=== PATIENT | female | born 1955 | race Caucasian/White ===

== ENCOUNTER 2017-04-03 18:00 | Emergency (ER) | payer MEDICARE, MEDICAID ==
[~2017-04-03] VITALS: Ht 162.6 cm; Wt 79.5 kg
[~2017-04-03 18:00] MED LIST: CEPH250T PO; CLOP75TA35 PO; HYDR-565 PO; INSU100C10 SQ; LANTUS SUBCUT; LISI10TA4 PO; ROPI4TAB3 PO
[2017-04-03] MEDS ORDERED: acetaminophen 325mg tablet PO STA (18:16)
[2017-04-03] MEDS ORDERED: normal saline 1000ML IV soln IV ONE (18:20)
[2017-04-03 19:15] LABS: ALBUMIN 3.1 G/DL (3.4-5.0); ALBUMIN/GLOBULIN RATIO 0.7 (1.1-1.5); ANION GAP 11 (8-16); ASPARTATE AMINO TRANSFERASE 21 U/L (10-37); BILIRUBIN,TOTAL 0.4 MG/DL (0.1-1.0); BLOOD UREA NITROGEN 12 MG/DL (7-18); BUN/CREATININE RATIO 12.2 (6.6-38.0); CALCIUM 8.3 MG/DL (8.5-10.1); CHLORIDE 100 MMOL/L (99-107); CREATININE 0.98 MG/DL (0.40-0.90); GLUCOSE 233 MG/DL (70-104); POTASSIUM 3.2 MMOL/L (3.5-5.1); SODIUM 136 MMOL/L (135-145); TOTAL CARBON DIOXIDE 25.3 MMOL/L (24-32); TOTAL PROTEIN 7.6 G/DL (6.4-8.2); eGFR 58 ML/MIN
[2017-04-03 19:16] LABS: ALANINE AMINOTRANSFERASE 20 U/L (12-78); ALKALINE PHOSPHATASE 95 IU/L (46-116)
[2017-04-03] MEDS ORDERED: potassium Cl 20 mEq SR tablet PO STA (19:25)
[2017-04-03 19:38] LABS: BASOPHILS % (AUTO) 0 % (0-1); EOSINOPHILS % (AUTO) 0 % (0-6); HEMATOCRIT 33.7 % (35.0-45.0); HEMOGLOBIN 10.7 g/dl (12.0-16.0); LYMPHOCYTES # (AUTO) 0.5 X10'3 (1.1-4.8); LYMPHOCYTES % (AUTO) 3.4 % (21-51); MEAN CORPUSCULAR HEMOGLOBIN 24.1 PG (27.0-31.0); MEAN CORPUSCULAR HGB CONC 31.9 % (33.0-36.5); MEAN CORPUSCULAR VOLUME 75.7 FL (78-98); MEAN PLATELET VOLUME 8.9 FL (7.4-10.4); MONOCYTES # (AUTO) 0.4 X10'3 (0-0.9); MONOCYTES % (AUTO) 2.5 % (2-12); NEUTROPHILS # (AUTO) 13.4 X10'3 (1.8-7.7); NEUTROPHILS % (AUTO) 94.1 % (42-75); PLATELET COUNT 222 X10'3 (140-440); RED BLOOD COUNT 4.45 X10'6 (4.20-5.60); RED CELL DISTRIBUTION WIDTH 18.4 % (11.5-14.5); WHITE BLOOD COUNT 14.2 X10'3 (4.5-11.0)
[2017-04-03 20:03] LABS: TOTAL CELLS COUNTED 100
[2017-04-03 20:06] LABS: ANISOCYTOSIS 2+; PLATELET ESTIMATE NORMAL
[2017-04-03 20:07] LABS: LARGE PLATELETS FEW
[2017-04-03] MEDS ORDERED: levoFLOXACIN-Levaquin 750MG/D5 150 ML IV STA (20:25)
[2017-04-03] MEDS ORDERED: ketorolac tromethamine 15mg/ml inj. IV ONE (20:55)
[2017-04-03 21:04] LABS: CLARITY,URINE CLEAR (Clear); COLOR,URINE YELLOW (Yellow); GLUCOSE, URINE 500 mg/dl (Neg); KETONES,URINE NEGATIVE (Neg); LEUKOCYTE ESTERASE ,URINE NEGATIVE (Neg); NITRITES, URINE POSITIVE (Neg); OCCULT BLOOD,URINE MODERATE (Neg); PROTEIN,URINE 30 mg/dl (Neg)
[2017-04-03 21:21] LABS: UA COLLECTION TYPE CLN CATCH MIDSTREAM
[2017-04-03 21:24] LABS: RBC,URINE 0-2 /HPF (0-2)
[2017-04-03 21:26] LABS: BACTERIA,URINE 1+ /HPF (Neg); CAL OXALATE CRYSTALS 1+ /HPF (NEGATIVE); HYALINE CASTS 0-3 /LPF (NEGATIVE); SQUAMOUS EPITHELIAL CELL,UR FEW /LPF (FEW)
[2017-04-03] MEDS ORDERED: TAM75C PO (22:45)
[2017-04-03] MEDS ORDERED: NITR100C6 PO (22:45)
[2017-04-03] MEDS ORDERED: nitrofuran/nitrofuran macrocrysal 100 MG capsule PO ONE (22:50)
[2017-04-03] MEDS ORDERED: oseltamivir phos 75mg capsule PO ONE (22:50)
[2017-04-03 23:32] VITALS: BP 145/65
== END 2017-04-03 23:42 | disposition home or self-care (01) ==
LOC: ER 18:00
DX: B34.9 Viral infection, unspecified (principal); N39.0 Urinary tract infection, site not specified; E11.42 Type 2 diabetes mellitus with diabetic polyneuropathy; G89.29 Other chronic pain; I25.10 Atherosclerotic heart disease of native coronary artery without angina pectoris; Z90.710 Acquired absence of both cervix and uterus; Z88.5 Allergy status to narcotic agent
CPT/HCPCS: 36415; 71045; 80053; 81001; 82948; 83605; 85025; 87040; 87088; 87502; 87503; 93005; 96374; 96375; 99285; J1885; J1956; J7030; 96365

== ENCOUNTER 2017-04-05 10:13 | Inpatient (IN) | payer MEDICARE, MEDICAID ==
[~2017-04-05] VITALS: Ht 157.5 cm; Wt 88.5 kg
[~2017-04-05 10:13] MED LIST changes: +NITR100C6 PO; +TAM75C PO
[2017-04-05] MEDS ORDERED: acetaminophen 325mg tablet PO STA (11:34)
[2017-04-05] MEDS ORDERED: vancomycin/NS 1 GM ADD-VANTAGE 250 ML IV ONE (11:35)
[2017-04-05] MEDS ORDERED: normal saline 1000ML IV soln IV ONE (11:35)
[2017-04-05] MEDS ORDERED: CefTRIAXone 2gm/D5W 50ml ADVTG 50 ML IV ONE (11:35)
[2017-04-05] MEDS ORDERED: CefTRIAXone inj 2,000 MG in normal saline 100ml IV soln 100 ML IV ONE (12:00)
[2017-04-05 12:27] LABS: BASOPHILS % (AUTO) 0 % (0-1); EOSINOPHILS # (AUTO) 0.1 X10'3 (0-0.9); EOSINOPHILS % (AUTO) 0.6 % (0-6); HEMOGLOBIN 9.2 g/dl (12.0-16.0); LYMPHOCYTES # (AUTO) 1.3 X10'3 (1.1-4.8); LYMPHOCYTES % (AUTO) 14.1 % (21-51); MEAN CORPUSCULAR HEMOGLOBIN 23.9 PG (27.0-31.0); MEAN CORPUSCULAR HGB CONC 31.6 % (33.0-36.5); MEAN CORPUSCULAR VOLUME 75.4 FL (78-98); MEAN PLATELET VOLUME 8.5 FL (7.4-10.4); MONOCYTES # (AUTO) 0.4 X10'3 (0-0.9); MONOCYTES % (AUTO) 4.6 % (2-12); NEUTROPHILS # (AUTO) 7.6 X10'3 (1.8-7.7); NEUTROPHILS % (AUTO) 80.7 % (42-75); PLATELET COUNT 211 X10'3 (140-440); RED BLOOD COUNT 3.84 X10'6 (4.20-5.60); RED CELL DISTRIBUTION WIDTH 19.1 % (11.5-14.5); WHITE BLOOD COUNT 9.4 X10'3 (4.5-11.0)
[2017-04-05 12:38] LABS: PARTIAL THROMBOPLASTIN TIME 34 SECONDS (22-32); PROTHROMBIN TIME 10.5 SECONDS (9.0-12.0)
[2017-04-05 12:53] LABS: ALANINE AMINOTRANSFERASE 29 U/L (12-78); ALBUMIN 2.6 G/DL (3.4-5.0); ALBUMIN/GLOBULIN RATIO 0.6 (1.1-1.5); ALKALINE PHOSPHATASE 91 IU/L (46-116); ANION GAP 8 (8-16); ASPARTATE AMINO TRANSFERASE 42 U/L (10-37); BILIRUBIN,TOTAL 0.4 MG/DL (0.1-1.0); BLOOD UREA NITROGEN 9 MG/DL (7-18); BUN/CREATININE RATIO 11.7 (6.6-38.0); CALCIUM 8.3 MG/DL (8.5-10.1); CHLORIDE 104 MMOL/L (99-107); CREATININE 0.77 MG/DL (0.40-0.90); GLUCOSE 99 MG/DL (70-104); MAGNESIUM 1.6 MG/DL (1.5-2.4); POTASSIUM 3.5 MMOL/L (3.5-5.1); SODIUM 138 MMOL/L (135-145); TOTAL CARBON DIOXIDE 26.5 MMOL/L (24-32); eGFR 76 ML/MIN
[2017-04-05 13:53] LABS: CLARITY,URINE Clear (Clear); COLOR,URINE Yellow (Yellow); GLUCOSE, URINE Negative (Neg); KETONES,URINE Negative (Neg); LEUKOCYTE ESTERASE ,URINE Small (Neg); NITRITES, URINE Negative (Neg); OCCULT BLOOD,URINE Small (Neg); PH,URINE 5.5 (4.8-8.0); PROTEIN,URINE 30 mg/dl (Neg)
[2017-04-05 13:55] LABS: UA COLLECTION TYPE CLN CATCH MIDSTREAM
[2017-04-05 14:05] LABS: BACTERIA,URINE NONE SEEN /HPF (Neg); MUCUS STRANDS NONE SEEN /LPF (Neg); RBC,URINE 0-2 /HPF (0-2); SQUAMOUS EPITHELIAL CELL,UR MODERATE /LPF (FEW)
[2017-04-05] MEDS ORDERED: potassium Cl 40MEQ/NS 500ml 500 ML IV PRN ×2 (14:05)
[2017-04-05] MEDS ORDERED: HYDROcodone/acetaminophen 5mg/325mg tablet PO PRN (14:05)
[2017-04-05] MEDS ORDERED: magnesium hydroxide 30ml (MOM) UD suspension PO PRN (14:05)
[2017-04-05] MEDS ORDERED: acetaminophen 325mg tablet PO PRN (14:05)
[2017-04-05] MEDS ORDERED: bisacodyl 10mg suppository rectal RC PRN (14:05)
[2017-04-05] MEDS ORDERED: ondansetron/PF 4mg/2ml inj IV PRN (14:05)
[2017-04-05] MEDS ORDERED: mag hydrox/Alum hydrox/simeth 30ml oral suspension PO PRN (14:05)
[2017-04-05] MEDS ORDERED: magnesium 4gm in 100ml NS 100 ML IV PRN (14:05)
[2017-04-05] MEDS ORDERED: potassium Cl 20 mEq SR tablet PO PRN (14:05)
[2017-04-05] MEDS ORDERED: magnesium Cl slow-release 64mg tablet PO PRN (14:05)
[2017-04-05] MEDS: levoFLOXACIN-Levaquin 500mg/D5 100 ML IV SCH (14:05)
[2017-04-05] MEDS ORDERED: magnesium 2GM in 50ml NS 50 ML IV PRN (14:05)
[2017-04-05] MEDS ORDERED: MESSAGE TO PHARMACY PO ONE ×2 (14:25)
[2017-04-05] MEDS ORDERED: glucagon, human recombinant 1mg kit SUBCUT PRN ×2 (14:25)
[2017-04-05] MEDS ORDERED: insulin Lispro (HumaLOG) vial - multi-dose SQ SCH ×2 (14:25)
[2017-04-05] MEDS ORDERED: dextrose 50%-water 50ml dispensing syringe IV PRN ×4 (14:25)
[2017-04-05] MEDS ORDERED: dextrose ORAL solution 15 GM/59 ML bottle PO PRN ×4 (14:25)
[2017-04-05] MEDS ORDERED: ROPINIRole 1mg tablet PO ONE (14:50)
[2017-04-05] MEDS: HYDROcodone/acetaminophen 10/325mg tab PO PRN ×2 (14:54→22:04)
[2017-04-05] MEDS: clindamycin 600mg/D5W 50ml 50 ML IV SCH ×2 (17:07→20:35)
[2017-04-05] MEDS ORDERED: iohexol 350MG/ML 100ml bottle IV ONE ×2 (17:26→18:05)
[2017-04-05] MEDS ORDERED: iohexol 350 MG/ML 50ML vial IV ONE (17:28)
[2017-04-05 19:00] VITALS: BP 130/63
[2017-04-05] MEDS ORDERED: non-formulary drug (Ropinirole Hcl (Requip) 1 TAB) PO SCH (20:00)
[2017-04-05] MEDS: docusate sod 100mg capsule PO SCH (20:00)
[2017-04-05] MEDS: potassium Cl 20mEq in NS 1,000 ML IV SCH (20:30)
[2017-04-05] MEDS: ROPINIRole 1mg tablet PO SCH (20:31)
[2017-04-05] MEDS: heparin, porcine 5000 units/ml vial SQ SCH (20:31)
[2017-04-05] MEDS: Insulin Detemir pen SQ SCH (21:00)
[2017-04-05] MEDS ORDERED: Insulin Detemir pen SQ SCH (21:00)
[2017-04-06] VITALS (7 sets, daily range): BP systolic 110–148; BP diastolic 59–89
[2017-04-06] MEDS ORDERED: HYDROmorphone inj. 0.5 MG/0.5 ML DISP.SYRIN IV PRN (00:25)
[2017-04-06] MEDS: HYDROmorphone 1 mg/ml syringe IV PRN ×2 (00:47→23:13)
[2017-04-06] MEDS: ROPINIRole 1mg tablet PO SCH ×4 (02:23→19:51)
[2017-04-06] MEDS: clindamycin 600mg/D5W 50ml 50 ML IV SCH ×4 (02:23→19:50)
[2017-04-06] MEDS: potassium Cl 20mEq in NS 1,000 ML IV SCH ×2 (04:21→12:14)
[2017-04-06 05:34] LABS: BASOPHILS % (AUTO) 0.2 % (0-1); EOSINOPHILS # (AUTO) 0.1 X10'3 (0-0.9); EOSINOPHILS % (AUTO) 1.9 % (0-6); HEMATOCRIT 26.4 % (35.0-45.0); HEMOGLOBIN 8.2 g/dl (12.0-16.0); LYMPHOCYTES # (AUTO) 1.4 X10'3 (1.1-4.8); LYMPHOCYTES % (AUTO) 19.9 % (21-51); MEAN CORPUSCULAR HEMOGLOBIN 23.5 PG (27.0-31.0); MEAN CORPUSCULAR VOLUME 75.6 FL (78-98); MEAN PLATELET VOLUME 9.8 FL (7.4-10.4); MONOCYTES # (AUTO) 0.5 X10'3 (0-0.9); MONOCYTES % (AUTO) 7.6 % (2-12); NEUTROPHILS % (AUTO) 70.4 % (42-75); PLATELET COUNT 141 X10'3 (140-440); RED BLOOD COUNT 3.49 X10'6 (4.20-5.60); RED CELL DISTRIBUTION WIDTH 19.2 % (11.5-14.5); WHITE BLOOD COUNT 7.1 X10'3 (4.5-11.0)
[2017-04-06 05:52] LABS: ALANINE AMINOTRANSFERASE 32 U/L (12-78); ALBUMIN 2.2 G/DL (3.4-5.0); ALBUMIN/GLOBULIN RATIO 0.6 (1.1-1.5); ALKALINE PHOSPHATASE 94 IU/L (46-116); ANION GAP 7 (8-16); ASPARTATE AMINO TRANSFERASE 43 U/L (10-37); BILIRUBIN,TOTAL 0.2 MG/DL (0.1-1.0); BLOOD UREA NITROGEN 8 MG/DL (7-18); CALCIUM 7.9 MG/DL (8.5-10.1); CHLORIDE 106 MMOL/L (99-107); CREATININE 0.57 MG/DL (0.40-0.90); GLUCOSE 82 MG/DL (70-104); MAGNESIUM 1.5 MG/DL (1.5-2.4); POTASSIUM 3.4 MMOL/L (3.5-5.1); SODIUM 136 MMOL/L (135-145); TOTAL CARBON DIOXIDE 22.7 MMOL/L (24-32); TOTAL PROTEIN 6.1 G/DL (6.4-8.2); eGFR > 90 ML/MIN
[2017-04-06] MEDS: lisinopril 10 MG tablet PO SCH (07:28)
[2017-04-06] MEDS: docusate sod 100mg capsule PO SCH ×2 (07:28→19:51)
[2017-04-06] MEDS: clopidogrel 75mg tablet PO SCH (07:28)
[2017-04-06] MEDS: heparin, porcine 5000 units/ml vial SQ SCH ×2 (07:29→19:51)
[2017-04-06] MEDS: potassium Cl 20 mEq SR tablet PO PRN ×3 (07:38→19:51)
[2017-04-06] MEDS: K and/or MAG REPLACEMENT MC SCH (08:00)
[2017-04-06] MEDS ORDERED: insulin glargine (Lantus) pen - multi-dose SQ SCH (08:00)
[2017-04-06] MEDS ORDERED: Insulin Detemir pen SQ SCH (08:00)
[2017-04-06] MEDS: levoFLOXACIN-Levaquin 500mg/D5 100 ML IV SCH (09:30)
[2017-04-06] MEDS: HYDROcodone/acetaminophen 10/325mg tab PO PRN (19:51)
[2017-04-06] MEDS: Insulin Detemir pen SQ SCH (21:00)
[2017-04-06] MEDS: diphenhydrAMINE 25mg capsule PO PRN (22:19)
[2017-04-07] VITALS: BP 110/71
[2017-04-07] MEDS: ROPINIRole 1mg tablet PO SCH ×4 (01:29→21:39)
[2017-04-07] MEDS: clindamycin 600mg/D5W 50ml 50 ML IV SCH ×4 (01:29→21:41)
[2017-04-07] MEDS ORDERED: potassium Cl 20mEq in NS 1,000 ML IV ONE (01:44)
[2017-04-07] MEDS: potassium Cl 20mEq in NS 1,000 ML IV SCH ×2 (01:48→20:13)
[2017-04-07 04:23] LABS: BASOPHILS % (AUTO) 0.3 % (0-1); EOSINOPHILS # (AUTO) 0.1 X10'3 (0-0.9); EOSINOPHILS % (AUTO) 1.7 % (0-6); HEMATOCRIT 24.4 % (35.0-45.0); HEMOGLOBIN 7.8 g/dl (12.0-16.0); LYMPHOCYTES # (AUTO) 1.6 X10'3 (1.1-4.8); LYMPHOCYTES % (AUTO) 25.7 % (21-51); MEAN CORPUSCULAR HEMOGLOBIN 23.9 PG (27.0-31.0); MEAN CORPUSCULAR HGB CONC 32.1 % (33.0-36.5); MEAN CORPUSCULAR VOLUME 74.5 FL (78-98); MEAN PLATELET VOLUME 9.5 FL (7.4-10.4); MONOCYTES # (AUTO) 0.5 X10'3 (0-0.9); MONOCYTES % (AUTO) 8.4 % (2-12); NEUTROPHILS # (AUTO) 4.1 X10'3 (1.8-7.7); NEUTROPHILS % (AUTO) 63.9 % (42-75); PLATELET COUNT 166 X10'3 (140-440); RED BLOOD COUNT 3.27 X10'6 (4.20-5.60); RED CELL DISTRIBUTION WIDTH 19.6 % (11.5-14.5); WHITE BLOOD COUNT 6.4 X10'3 (4.5-11.0)
[2017-04-07 04:44] LABS: ALANINE AMINOTRANSFERASE 28 U/L (12-78); ALBUMIN 2.1 G/DL (3.4-5.0); ALBUMIN/GLOBULIN RATIO 0.5 (1.1-1.5); ALKALINE PHOSPHATASE 84 IU/L (46-116); ANION GAP 7 (8-16); ASPARTATE AMINO TRANSFERASE 22 U/L (10-37); BILIRUBIN,TOTAL 0.2 MG/DL (0.1-1.0); BLOOD UREA NITROGEN 5 MG/DL (7-18); BUN/CREATININE RATIO 7.8 (6.6-38.0); CALCIUM 7.7 MG/DL (8.5-10.1); CHLORIDE 106 MMOL/L (99-107); CREATININE 0.64 MG/DL (0.40-0.90); GLUCOSE 82 MG/DL (70-104); MAGNESIUM 1.7 MG/DL (1.5-2.4); POTASSIUM 3.8 MMOL/L (3.5-5.1); SODIUM 139 MMOL/L (135-145); TOTAL CARBON DIOXIDE 25.7 MMOL/L (24-32); TOTAL PROTEIN 6.2 G/DL (6.4-8.2); eGFR > 90 ML/MIN
[2017-04-07] MEDS: HYDROcodone/acetaminophen 10/325mg tab PO PRN ×2 (04:47→12:14)
[2017-04-07 06:50] VITALS: BP_SYST 106; BP_SYST 115; BP_SYST 120; BP_DIAS 50; BP_DIAS 58; BP_DIAS 65
[2017-04-07] MEDS: clopidogrel 75mg tablet PO SCH (07:08)
[2017-04-07] MEDS: lisinopril 10 MG tablet PO SCH (07:09)
[2017-04-07] MEDS: docusate sod 100mg capsule PO SCH ×2 (07:10→20:00)
[2017-04-07] MEDS: heparin, porcine 5000 units/ml vial SQ SCH ×2 (07:10→21:40)
[2017-04-07] MEDS: K and/or MAG REPLACEMENT MC SCH (07:14)
[2017-04-07] MEDS: levoFLOXACIN-Levaquin 500mg/D5 100 ML IV SCH (08:43)
[2017-04-07 11:20] VITALS: BP 114/73
[2017-04-07] MEDS: HYDROmorphone 1 mg/ml syringe IV PRN (18:46)
[2017-04-07 19:30] VITALS: BP_SYST 124; BP_SYST 134; BP_SYST 139; BP_DIAS 53; BP_DIAS 62
[2017-04-07] MEDS: diphenhydrAMINE 25mg capsule PO PRN (21:42)
[2017-04-07] MEDS: Insulin Detemir pen SQ SCH (22:30)
[2017-04-08] VITALS: BP 106/51
[2017-04-08] MEDS: HYDROmorphone 1 mg/ml syringe IV PRN ×3 (01:20→22:36)
[2017-04-08] MEDS: clindamycin 600mg/D5W 50ml 50 ML IV SCH ×4 (02:40→20:22)
[2017-04-08] MEDS: ROPINIRole 1mg tablet PO SCH ×4 (02:41→20:22)
[2017-04-08 05:29] LABS: BASOPHILS % (AUTO) 0.5 % (0-1); EOSINOPHILS # (AUTO) 0.2 X10'3 (0-0.9); EOSINOPHILS % (AUTO) 2.9 % (0-6); HEMATOCRIT 24.2 % (35.0-45.0); HEMOGLOBIN 7.7 g/dl (12.0-16.0); LYMPHOCYTES # (AUTO) 1.8 X10'3 (1.1-4.8); LYMPHOCYTES % (AUTO) 27.8 % (21-51); MEAN CORPUSCULAR HEMOGLOBIN 23.7 PG (27.0-31.0); MEAN CORPUSCULAR HGB CONC 31.9 % (33.0-36.5); MEAN CORPUSCULAR VOLUME 74.5 FL (78-98); MEAN PLATELET VOLUME 9.5 FL (7.4-10.4); MONOCYTES # (AUTO) 0.6 X10'3 (0-0.9); MONOCYTES % (AUTO) 8.4 % (2-12); NEUTROPHILS % (AUTO) 60.4 % (42-75); PLATELET COUNT 208 X10'3 (140-440); RED BLOOD COUNT 3.25 X10'6 (4.20-5.60); RED CELL DISTRIBUTION WIDTH 19.2 % (11.5-14.5); WHITE BLOOD COUNT 6.6 X10'3 (4.5-11.0)
[2017-04-08 05:59] LABS: ALANINE AMINOTRANSFERASE 26 U/L (12-78); ALBUMIN 2.1 G/DL (3.4-5.0); ALBUMIN/GLOBULIN RATIO 0.5 (1.1-1.5); ALKALINE PHOSPHATASE 80 IU/L (46-116); ANION GAP 8 (8-16); ASPARTATE AMINO TRANSFERASE 19 U/L (10-37); BILIRUBIN,TOTAL 0.3 MG/DL (0.1-1.0); BLOOD UREA NITROGEN 3 MG/DL (7-18); BUN/CREATININE RATIO 4.9 (6.6-38.0); CALCIUM 7.8 MG/DL (8.5-10.1); CHLORIDE 105 MMOL/L (99-107); CREATININE 0.61 MG/DL (0.40-0.90); GLUCOSE 98 MG/DL (70-104); MAGNESIUM 1.7 MG/DL (1.5-2.4); POTASSIUM 3.6 MMOL/L (3.5-5.1); SODIUM 139 MMOL/L (135-145); TOTAL CARBON DIOXIDE 26.5 MMOL/L (24-32); TOTAL PROTEIN 6.1 G/DL (6.4-8.2); eGFR > 90 ML/MIN
[2017-04-08 07:42] VITALS: BP 127/63
[2017-04-08 08:00] VITALS: BP_SYST 117; BP_DIAS 62; BP_DIAS 63; BP_DIAS 70
[2017-04-08] MEDS: K and/or MAG REPLACEMENT MC SCH (08:00)
[2017-04-08] MEDS: docusate sod 100mg capsule PO SCH ×2 (10:47→20:00)
[2017-04-08] MEDS: lisinopril 10 MG tablet PO SCH (10:47)
[2017-04-08] MEDS: heparin, porcine 5000 units/ml vial SQ SCH (10:49)
[2017-04-08 11:42] VITALS: BP 117/70
[2017-04-08] MEDS: levoFLOXACIN-Levaquin 500mg/D5 100 ML IV SCH (11:49)
[2017-04-08] MEDS ORDERED: heparin 10,000 units/1 ML INJ IV ONE (12:50)
[2017-04-08] MEDS: potassium Cl 20mEq in NS 1,000 ML IV SCH (13:33)
[2017-04-08 13:55] LABS: PARTIAL THROMBOPLASTIN TIME 30 SECONDS (22-32); PROTHROMBIN TIME 10.2 SECONDS (9.0-12.0)
[2017-04-08 19:00] VITALS: BP 156/86
[2017-04-08 20:00] VITALS: BP_SYST 114; BP_SYST 129; BP_SYST 133; BP_DIAS 65; BP_DIAS 67; BP_DIAS 82
[2017-04-08] MEDS: Insulin Detemir pen SQ SCH (21:00)
[2017-04-09] VITALS (21 sets, daily range): BP systolic 96–162; BP diastolic 48–117
[2017-04-09 01:36] LABS: ALANINE AMINOTRANSFERASE 25 U/L (12-78); ALBUMIN 2.1 G/DL (3.4-5.0); ALBUMIN/GLOBULIN RATIO 0.5 (1.1-1.5); ALKALINE PHOSPHATASE 77 IU/L (46-116); ANION GAP 5 (8-16); ASPARTATE AMINO TRANSFERASE 13 U/L (10-37); BILIRUBIN,TOTAL 0.2 MG/DL (0.1-1.0); BLOOD UREA NITROGEN 3 MG/DL (7-18); BUN/CREATININE RATIO 4.4 (6.6-38.0); CALCIUM 7.8 MG/DL (8.5-10.1); CHLORIDE 104 MMOL/L (99-107); CREATININE 0.68 MG/DL (0.40-0.90); GLUCOSE 238 MG/DL (70-104); MAGNESIUM 1.8 MG/DL (1.5-2.4); POTASSIUM 3.7 MMOL/L (3.5-5.1); SODIUM 137 MMOL/L (135-145); TOTAL CARBON DIOXIDE 28.5 MMOL/L (24-32); TOTAL PROTEIN 6.3 G/DL (6.4-8.2); eGFR 88 ML/MIN
[2017-04-09 01:58] LABS: BASOPHILS % (AUTO) 0.5 % (0-1); EOSINOPHILS # (AUTO) 0.2 X10'3 (0-0.9); EOSINOPHILS % (AUTO) 2.6 % (0-6); HEMATOCRIT 25.4 % (35.0-45.0); LYMPHOCYTES # (AUTO) 1.7 X10'3 (1.1-4.8); LYMPHOCYTES % (AUTO) 23.5 % (21-51); MEAN CORPUSCULAR HEMOGLOBIN 23.6 PG (27.0-31.0); MEAN CORPUSCULAR HGB CONC 31.5 % (33.0-36.5); MEAN CORPUSCULAR VOLUME 74.8 FL (78-98); MEAN PLATELET VOLUME 9.7 FL (7.4-10.4); MONOCYTES # (AUTO) 0.4 X10'3 (0-0.9); MONOCYTES % (AUTO) 5.8 % (2-12); NEUTROPHILS % (AUTO) 67.6 % (42-75); PLATELET COUNT 285 X10'3 (140-440); RED CELL DISTRIBUTION WIDTH 19.6 % (11.5-14.5); WHITE BLOOD COUNT 7.3 X10'3 (4.5-11.0)
[2017-04-09] MEDS: ROPINIRole 1mg tablet PO SCH ×4 (02:00→20:45)
[2017-04-09] MEDS: clindamycin 600mg/D5W 50ml 50 ML IV SCH ×4 (02:23→20:23)
[2017-04-09] MEDS: potassium Cl 20mEq in NS 1,000 ML IV SCH ×2 (03:51→11:28)
[2017-04-09] MEDS: HYDROcodone/acetaminophen 10/325mg tab PO PRN (04:04)
[2017-04-09] MEDS: lisinopril 10 MG tablet PO SCH (07:45)
[2017-04-09] MEDS: LACTOBACILLUS RHAMNOSUS GG 15 billion unit sprinkle caps PO SCH (07:46)
[2017-04-09] MEDS: docusate sod 100mg capsule PO SCH ×2 (07:47→20:23)
[2017-04-09] MEDS: heparin 10,000 units/1 ML INJ IV PRN (07:54)
[2017-04-09] MEDS: K and/or MAG REPLACEMENT MC SCH (08:00)
[2017-04-09] MEDS: levoFLOXACIN 500mg tablet PO SCH (11:22)
[2017-04-09] MEDS ORDERED: HYDR-3972 (11:45)
[2017-04-09] MEDS ORDERED: iohexol 300 MG/1 ML 50ml polymer ONE (14:02)
[2017-04-09] MEDS ORDERED: iohexol 300mg/ml 100ml inj. ONE (14:02)
[2017-04-09] MEDS ORDERED: LIDOcaine 1%/PF (10mg/ml) 5ml vial ONE (14:03)
[2017-04-09] MEDS ORDERED: normal saline 1000ml 1,000 ML IV SCH (14:17)
[2017-04-09] MEDS ORDERED: fentaNYL/PF 50MCG/1 ML 2ML syringe IV PRN (14:20)
[2017-04-09] MEDS ORDERED: midazolam 2 mg/2 ml injection IV PRN (14:20)
[2017-04-09] MEDS ORDERED: LIDOcaine 1%/PF (10mg/ml) 5ml vial SQ ONE (14:20)
[2017-04-09] MEDS ORDERED: midazolam 2 mg/2 ml injection ONE (14:47)
[2017-04-09] MEDS ORDERED: heparin 1,000 UNITS/NS 500ml 500 ML ONE ×2 (14:47→15:30)
[2017-04-09] MEDS ORDERED: heparin 1,000unit/ml 10ml vial 0 ML ONE (14:47)
[2017-04-09] MEDS ORDERED: fentaNYL/PF 50MCG/1 ML 2ML syringe ONE (14:47)
[2017-04-09] MEDS ORDERED: tPA-cathflo 2mg/2ml IV flush 4 MG in normal saline 100ml IV soln 100 ML ICATH SCH (15:19)
[2017-04-09] MEDS: heparin 1,000 UNITS/NS 500ml 500 ML IV SCH (15:20)
[2017-04-09] MEDS: HYDROmorphone 1 mg/ml syringe IV PRN (17:35)
[2017-04-09] MEDS ORDERED: HYDROmorphone/NS 1 mg/ml CADD 50 ML IV SCH (18:50)
[2017-04-09] MEDS ORDERED: CADD PCA waste documentation MC SCH (18:55)
[2017-04-09] MEDS: HYDROmorphone/NS 1 mg/ml CADD 50 ML IV SCH ×3 (19:36→23:00)
[2017-04-09] MEDS: Insulin Detemir pen SQ SCH (21:00)
[2017-04-09 22:21] LABS: HEMATOCRIT 26.4 % (35.0-45.0); HEMOGLOBIN 8.4 g/dl (12.0-16.0); MEAN CORPUSCULAR HEMOGLOBIN 23.9 PG (27.0-31.0); MEAN CORPUSCULAR HGB CONC 31.7 % (33.0-36.5); MEAN CORPUSCULAR VOLUME 75.2 FL (78-98); MEAN PLATELET VOLUME 8.2 FL (7.4-10.4); PLATELET COUNT 294 X10'3 (140-440); RED BLOOD COUNT 3.52 X10'6 (4.20-5.60); WHITE BLOOD COUNT 8.5 X10'3 (4.5-11.0)
[2017-04-10] VITALS (44 sets, daily range): BP systolic 88–150; BP diastolic 31–87
[2017-04-10] MEDS: HYDROmorphone/NS 1 mg/ml CADD 50 ML IV SCH ×12 (01:00→23:00)
[2017-04-10] MEDS: diphenhydrAMINE 25mg capsule PO PRN (01:35)
[2017-04-10] MEDS: clindamycin 600mg/D5W 50ml 50 ML IV SCH ×4 (02:11→19:43)
[2017-04-10] MEDS: ROPINIRole 1mg tablet PO SCH ×4 (02:13→19:43)
[2017-04-10] MEDS: heparin 1,000 UNITS/NS 500ml 500 ML IV SCH (02:44)
[2017-04-10 05:26] LABS: BASOPHILS % (AUTO) 0.4 % (0-1); EOSINOPHILS # (AUTO) 0.2 X10'3 (0-0.9); EOSINOPHILS % (AUTO) 2.2 % (0-6); HEMATOCRIT 25.2 % (35.0-45.0); HEMOGLOBIN 7.9 g/dl (12.0-16.0); LYMPHOCYTES # (AUTO) 2.3 X10'3 (1.1-4.8); LYMPHOCYTES % (AUTO) 26.9 % (21-51); MEAN CORPUSCULAR HEMOGLOBIN 23.7 PG (27.0-31.0); MEAN CORPUSCULAR HGB CONC 31.5 % (33.0-36.5); MEAN CORPUSCULAR VOLUME 75.3 FL (78-98); MEAN PLATELET VOLUME 8.8 FL (7.4-10.4); MONOCYTES # (AUTO) 0.8 X10'3 (0-0.9); MONOCYTES % (AUTO) 9.5 % (2-12); NEUTROPHILS # (AUTO) 5.3 X10'3 (1.8-7.7); PLATELET COUNT 313 X10'3 (140-440); RED BLOOD COUNT 3.34 X10'6 (4.20-5.60); RED CELL DISTRIBUTION WIDTH 19.4 % (11.5-14.5); WHITE BLOOD COUNT 8.6 X10'3 (4.5-11.0)
[2017-04-10 05:44] LABS: INR 1.1 INR; PARTIAL THROMBOPLASTIN TIME 33 SECONDS (22-32); PROTHROMBIN TIME 11.5 SECONDS (9.0-12.0)
[2017-04-10 05:55] LABS: ALANINE AMINOTRANSFERASE 21 U/L (12-78); ALBUMIN/GLOBULIN RATIO 0.5 (1.1-1.5); ALKALINE PHOSPHATASE 66 IU/L (46-116); ANION GAP 6 (8-16); ASPARTATE AMINO TRANSFERASE 14 U/L (10-37); BILIRUBIN,TOTAL 0.3 MG/DL (0.1-1.0); BLOOD UREA NITROGEN 3 MG/DL (7-18); CALCIUM 7.5 MG/DL (8.5-10.1); CHLORIDE 105 MMOL/L (99-107); GLUCOSE 79 MG/DL (70-104); MAGNESIUM 1.7 MG/DL (1.5-2.4); POTASSIUM 3.6 MMOL/L (3.5-5.1); SODIUM 139 MMOL/L (135-145); TOTAL CARBON DIOXIDE 28.5 MMOL/L (24-32); TOTAL PROTEIN 5.9 G/DL (6.4-8.2); eGFR > 90 ML/MIN
[2017-04-10] MEDS: LACTOBACILLUS RHAMNOSUS GG 15 billion unit sprinkle caps PO SCH (07:31)
[2017-04-10] MEDS: docusate sod 100mg capsule PO SCH ×2 (07:31→19:43)
[2017-04-10] MEDS: lisinopril 10 MG tablet PO SCH (08:20)
[2017-04-10] MEDS: K and/or MAG REPLACEMENT MC SCH (08:22)
[2017-04-10] MEDS: HYDROcodone/acetaminophen 10/325mg tab PO PRN (09:20)
[2017-04-10 10:17] LABS: HEMATOCRIT 25.2 % (35.0-45.0); HEMOGLOBIN 7.8 g/dl (12.0-16.0); MEAN CORPUSCULAR HEMOGLOBIN 23.4 PG (27.0-31.0); MEAN CORPUSCULAR HGB CONC 31.1 % (33.0-36.5); MEAN CORPUSCULAR VOLUME 75.4 FL (78-98); MEAN PLATELET VOLUME 7.9 FL (7.4-10.4); PLATELET COUNT 332 X10'3 (140-440); RED BLOOD COUNT 3.34 X10'6 (4.20-5.60); RED CELL DISTRIBUTION WIDTH 19.5 % (11.5-14.5); WHITE BLOOD COUNT 8.2 X10'3 (4.5-11.0)
[2017-04-10 10:46] LABS: FERRITIN 33 NG/ML (8-252)
[2017-04-10 11:02] LABS: % IRON SATURATION 7 % (11-46); IRON 21 UG/DL (49-151); TOTAL IRON BINDING CAPACITY 282 UG/DL (259-388)
[2017-04-10] MEDS: levoFLOXACIN 500mg tablet PO SCH (11:23)
[2017-04-10 12:09] LABS: CREATINE KINASE 43 U/L (26-192)
[2017-04-10] MEDS ORDERED: normal saline 1000ml 1,000 ML IV SCH (13:05)
[2017-04-10] MEDS ORDERED: fentaNYL/PF 50MCG/1 ML 2ML syringe IV PRN (13:05)
[2017-04-10] MEDS ORDERED: midazolam 2 mg/2 ml injection IV PRN (13:05)
[2017-04-10] MEDS ORDERED: LIDOcaine 1%/PF (10mg/ml) 5ml vial SQ ONE (13:05)
[2017-04-10] MEDS ORDERED: heparin 1,000 UNITS/NS 500ml 500 ML ONE ×2 (13:11→15:05)
[2017-04-10] MEDS ORDERED: midazolam 2 mg/2 ml injection ONE (13:11)
[2017-04-10] MEDS ORDERED: fentaNYL/PF 50MCG/1 ML 2ML syringe ONE (13:11)
[2017-04-10] MEDS ORDERED: iohexol 300 MG/1 ML 50ml polymer ONE ×2 (13:12→15:07)
[2017-04-10] MEDS ORDERED: iohexol 300mg/ml 100ml inj. ONE (13:12)
[2017-04-10] MEDS: normal saline 1000ml 1,000 ML IV SCH ×2 (15:46→19:45)
[2017-04-10] MEDS ORDERED: clopidogrel 75mg tablet PO ONE (17:55)
[2017-04-10 18:54] LABS: PARTIAL THROMBOPLASTIN TIME 38 SECONDS (22-32)
[2017-04-10] MEDS: heparin 10,000 units/1 ML INJ IV PRN (19:21)
[2017-04-10] MEDS: Insulin Detemir pen SQ SCH (21:00)
[2017-04-10] MEDS: clopidogrel 75mg tablet PO SCH (21:03)
[2017-04-10] MEDS: potassium Cl 20mEq in NS 1,000 ML IV SCH (22:45)
[2017-04-11] VITALS (12 sets, daily range): BP systolic 88–137; BP diastolic 47–64
[2017-04-11] MEDS: HYDROmorphone/NS 1 mg/ml CADD 50 ML IV SCH ×12 (01:00→23:00)
[2017-04-11] MEDS: ROPINIRole 1mg tablet PO SCH ×4 (02:35→19:54)
[2017-04-11] MEDS: clindamycin 600mg/D5W 50ml 50 ML IV SCH ×4 (02:35→19:51)
[2017-04-11 05:43] LABS: ALBUMIN 2.1 G/DL (3.4-5.0); ANION GAP 6 (8-16); BLOOD UREA NITROGEN 3 MG/DL (7-18); BUN/CREATININE RATIO 4.3 (6.6-38.0); CALCIUM 7.8 MG/DL (8.5-10.1); CHLORIDE 103 MMOL/L (99-107); GLUCOSE 114 MG/DL (70-104); MAGNESIUM 1.7 MG/DL (1.5-2.4); POTASSIUM 3.6 MMOL/L (3.5-5.1); SODIUM 138 MMOL/L (135-145); TOTAL CARBON DIOXIDE 29.3 MMOL/L (24-32); eGFR 85 ML/MIN
[2017-04-11] MEDS: clopidogrel 75mg tablet PO SCH (07:54)
[2017-04-11] MEDS: LACTOBACILLUS RHAMNOSUS GG 15 billion unit sprinkle caps PO SCH (07:54)
[2017-04-11] MEDS: lisinopril 10 MG tablet PO SCH (07:54)
[2017-04-11] MEDS: docusate sod 100mg capsule PO SCH ×2 (07:57→19:54)
[2017-04-11] MEDS ORDERED: vancomycin/NS 1 GM ADD-VANTAGE 250 ML IV SCH (08:00)
[2017-04-11] MEDS: K and/or MAG REPLACEMENT MC SCH (08:00)
[2017-04-11] MEDS: levoFLOXACIN 500mg tablet PO SCH (11:26)
[2017-04-11] MEDS: potassium Cl 20mEq in NS 1,000 ML IV SCH ×2 (11:26→13:03)
[2017-04-11] MEDS ORDERED: vancomycin inj 1,250 MG in normal saline 250ml IV soln 250 ML IV SCH (20:00)
[2017-04-11] MEDS: Insulin Detemir pen SQ SCH (21:00)
[2017-04-12] VITALS: BP 109/50
[2017-04-12] MEDS: HYDROmorphone/NS 1 mg/ml CADD 50 ML IV SCH ×12 (01:00→23:00)
[2017-04-12] MEDS: clindamycin 600mg/D5W 50ml 50 ML IV SCH ×3 (02:37→13:52)
[2017-04-12] MEDS: ROPINIRole 1mg tablet PO SCH ×4 (02:37→20:08)
[2017-04-12] MEDS: potassium Cl 20mEq in NS 1,000 ML IV SCH ×2 (03:20→17:34)
[2017-04-12 06:40] VITALS: BP 133/60
[2017-04-12] MEDS: K and/or MAG REPLACEMENT MC SCH (08:00)
[2017-04-12] MEDS: docusate sod 100mg capsule PO SCH ×2 (08:00→20:00)
[2017-04-12] MEDS: lisinopril 10 MG tablet PO SCH (08:48)
[2017-04-12] MEDS: clopidogrel 75mg tablet PO SCH (08:48)
[2017-04-12] MEDS: LACTOBACILLUS RHAMNOSUS GG 15 billion unit sprinkle caps PO SCH (08:53)
[2017-04-12 10:25] VITALS: BP 119/65
[2017-04-12] MEDS: levoFLOXACIN 500mg tablet PO SCH (11:23)
[2017-04-12] MEDS ORDERED: levoFLOXACIN-Levaquin 500mg/D5 100 ML IV SCH (16:30)
[2017-04-12 18:00] VITALS: BP 126/61
[2017-04-12] MEDS ORDERED: VANCOMYCIN LEVEL IV ONE (19:30)
[2017-04-12] MEDS: vancomycin inj 1,250 MG in normal saline 250ml IV soln 250 ML IV SCH (20:09)
[2017-04-12] MEDS: Insulin Detemir pen SQ SCH (21:00)
[2017-04-13] VITALS (14 sets, daily range): BP systolic 103–156; BP diastolic 35–83
[2017-04-13] MEDS: HYDROmorphone/NS 1 mg/ml CADD 50 ML IV SCH ×12 (01:00→23:00)
[2017-04-13] MEDS: ROPINIRole 1mg tablet PO SCH ×4 (01:39→19:49)
[2017-04-13 03:53] LABS: BASOPHILS % (AUTO) 0.3 % (0-1); EOSINOPHILS # (AUTO) 0.2 X10'3 (0-0.9); LYMPHOCYTES # (AUTO) 1.6 X10'3 (1.1-4.8); LYMPHOCYTES % (AUTO) 19.8 % (21-51); MEAN CORPUSCULAR HEMOGLOBIN 23.5 PG (27.0-31.0); MEAN CORPUSCULAR HGB CONC 31.6 % (33.0-36.5); MEAN CORPUSCULAR VOLUME 74.6 FL (78-98); MEAN PLATELET VOLUME 7.9 FL (7.4-10.4); MONOCYTES # (AUTO) 0.6 X10'3 (0-0.9); MONOCYTES % (AUTO) 7.1 % (2-12); NEUTROPHILS # (AUTO) 5.8 X10'3 (1.8-7.7); NEUTROPHILS % (AUTO) 70.8 % (42-75); PLATELET COUNT 302 X10'3 (140-440); RED BLOOD COUNT 2.87 X10'6 (4.20-5.60); RED CELL DISTRIBUTION WIDTH 18.9 % (11.5-14.5); WHITE BLOOD COUNT 8.3 X10'3 (4.5-11.0)
[2017-04-13 03:58] LABS: HEMOGLOBIN 6.8 g/dl (12.0-16.0)
[2017-04-13 03:59] LABS: HEMATOCRIT 21.4 % (35.0-45.0)
[2017-04-13 04:19] LABS: ALBUMIN 1.6 G/DL (3.4-5.0); ANION GAP 6 (8-16); BLOOD UREA NITROGEN 4 MG/DL (7-18); BUN/CREATININE RATIO 6.7 (6.6-38.0); CALCIUM 7.6 MG/DL (8.5-10.1); CHLORIDE 105 MMOL/L (99-107); GLUCOSE 127 MG/DL (70-104); POTASSIUM 3.5 MMOL/L (3.5-5.1); SODIUM 139 MMOL/L (135-145); eGFR > 90 ML/MIN
[2017-04-13] MEDS: vancomycin inj 1,250 MG in normal saline 250ml IV soln 250 ML IV SCH ×2 (05:50→18:02)
[2017-04-13] MEDS: docusate sod 100mg capsule PO SCH ×2 (08:00→19:49)
[2017-04-13] MEDS: K and/or MAG REPLACEMENT MC SCH (08:00)
[2017-04-13] MEDS ORDERED: levoFLOXACIN-Levaquin 500mg/D5 100 ML IV SCH (08:00)
[2017-04-13] MEDS: LACTOBACILLUS RHAMNOSUS GG 15 billion unit sprinkle caps PO SCH (08:41)
[2017-04-13] MEDS: lisinopril 10 MG tablet PO SCH (08:42)
[2017-04-13] MEDS: levoFLOXACIN-Levaquin 500mg/D5 100 ML IV SCH (08:42)
[2017-04-13] MEDS: clopidogrel 75mg tablet PO SCH (08:42)
[2017-04-13] MEDS ORDERED: iohexol 300mg/ml 100ml inj. ONE (10:17)
[2017-04-13] MEDS: potassium Cl 20mEq in NS 1,000 ML IV SCH ×2 (12:03→22:15)
[2017-04-13] MEDS: Insulin Detemir pen SQ SCH (21:00)
[2017-04-14] VITALS: BP 151/76
[2017-04-14] MEDS: HYDROmorphone/NS 1 mg/ml CADD 50 ML IV SCH ×12 (01:00→23:00)
[2017-04-14] MEDS: ROPINIRole 1mg tablet PO SCH ×3 (01:40→20:01)
[2017-04-14] MEDS ORDERED: VANCOMYCIN LEVEL IV NR (05:30)
[2017-04-14 05:35] LABS: BASOPHILS % (AUTO) 0.4 % (0-1); EOSINOPHILS # (AUTO) 0.2 X10'3 (0-0.9); EOSINOPHILS % (AUTO) 2.4 % (0-6); HEMATOCRIT 31.4 % (35.0-45.0); HEMOGLOBIN 9.9 g/dl (12.0-16.0); LYMPHOCYTES # (AUTO) 1.4 X10'3 (1.1-4.8); LYMPHOCYTES % (AUTO) 22.5 % (21-51); MEAN CORPUSCULAR HEMOGLOBIN 24.2 PG (27.0-31.0); MEAN CORPUSCULAR HGB CONC 31.7 % (33.0-36.5); MEAN CORPUSCULAR VOLUME 76.4 FL (78-98); MEAN PLATELET VOLUME 8.1 FL (7.4-10.4); MONOCYTES # (AUTO) 0.4 X10'3 (0-0.9); MONOCYTES % (AUTO) 6.5 % (2-12); NEUTROPHILS # (AUTO) 4.4 X10'3 (1.8-7.7); NEUTROPHILS % (AUTO) 68.2 % (42-75); PLATELET COUNT 334 X10'3 (140-440); WHITE BLOOD COUNT 6.4 X10'3 (4.5-11.0)
[2017-04-14] MEDS: vancomycin inj 1,250 MG in normal saline 250ml IV soln 250 ML IV SCH ×2 (05:36→17:19)
[2017-04-14 06:09] LABS: VANCOMYCIN,TROUGH 17.5 UG/ML (6.0-14.0)
[2017-04-14] MEDS: LACTOBACILLUS RHAMNOSUS GG 15 billion unit sprinkle caps PO SCH (07:12)
[2017-04-14] MEDS: clopidogrel 75mg tablet PO SCH (07:12)
[2017-04-14] MEDS: lisinopril 10 MG tablet PO SCH (07:12)
[2017-04-14] MEDS: K and/or MAG REPLACEMENT MC SCH (07:16)
[2017-04-14] MEDS: docusate sod 100mg capsule PO SCH ×2 (07:16→20:00)
[2017-04-14 07:54] VITALS: BP 125/75
[2017-04-14] MEDS: levoFLOXACIN-Levaquin 500mg/D5 100 ML IV SCH (09:01)
[2017-04-14 11:52] VITALS: BP 143/71
[2017-04-14] MEDS: potassium Cl 20mEq in NS 1,000 ML IV SCH (12:22)
[2017-04-14] MEDS ORDERED: ROPINIRole 0.25mg tablet PO SCH (15:11)
[2017-04-14 18:00] VITALS: BP 130/64
[2017-04-14] MEDS: Insulin Detemir pen SQ SCH (21:00)
[2017-04-14 23:00] VITALS: BP 148/68
[2017-04-15] MEDS: HYDROmorphone/NS 1 mg/ml CADD 50 ML IV SCH ×3 (01:00→04:14)
[2017-04-15] MEDS: ROPINIRole 1mg tablet PO SCH ×2 (02:25→07:57)
[2017-04-15] MEDS ORDERED: potassium Cl 20mEq in NS 1,000 ML IV ONE (05:17)
[2017-04-15] MEDS: potassium Cl 20mEq in NS 1,000 ML IV SCH (05:23)
[2017-04-15] MEDS: vancomycin inj 1,250 MG in normal saline 250ml IV soln 250 ML IV SCH (05:24)
[2017-04-15 06:53] LABS: BASOPHILS % (AUTO) 0.5 % (0-1); EOSINOPHILS # (AUTO) 0.2 X10'3 (0-0.9); EOSINOPHILS % (AUTO) 2.3 % (0-6); HEMATOCRIT 31.5 % (35.0-45.0); HEMOGLOBIN 9.9 g/dl (12.0-16.0); LYMPHOCYTES # (AUTO) 1.6 X10'3 (1.1-4.8); LYMPHOCYTES % (AUTO) 23.1 % (21-51); MEAN CORPUSCULAR HGB CONC 31.3 % (33.0-36.5); MEAN CORPUSCULAR VOLUME 76.8 FL (78-98); MEAN PLATELET VOLUME 7.9 FL (7.4-10.4); MONOCYTES # (AUTO) 0.5 X10'3 (0-0.9); MONOCYTES % (AUTO) 6.7 % (2-12); NEUTROPHILS # (AUTO) 4.6 X10'3 (1.8-7.7); NEUTROPHILS % (AUTO) 67.4 % (42-75); PLATELET COUNT 391 X10'3 (140-440); RED CELL DISTRIBUTION WIDTH 18.7 % (11.5-14.5); WHITE BLOOD COUNT 6.8 X10'3 (4.5-11.0)
[2017-04-15 07:10] LABS: ALBUMIN 1.9 G/DL (3.4-5.0); ANION GAP 6 (8-16); BLOOD UREA NITROGEN 5 MG/DL (7-18); BUN/CREATININE RATIO 8.3 (6.6-38.0); CALCIUM 7.9 MG/DL (8.5-10.1); CHLORIDE 107 MMOL/L (99-107); GLUCOSE 107 MG/DL (70-104); POTASSIUM 3.7 MMOL/L (3.5-5.1); SODIUM 142 MMOL/L (135-145); eGFR > 90 ML/MIN
[2017-04-15] MEDS: LACTOBACILLUS RHAMNOSUS GG 15 billion unit sprinkle caps PO SCH (07:52)
[2017-04-15] MEDS: lisinopril 10 MG tablet PO SCH (07:53)
[2017-04-15] MEDS: clopidogrel 75mg tablet PO SCH (07:53)
[2017-04-15] MEDS: docusate sod 100mg capsule PO SCH (07:53)
[2017-04-15] MEDS ORDERED: levoFLOXACIN 500mg tablet PO SCH (11:00)
[2017-04-15 14:06] LABS: OCCULT BLOOD STOOL NEGATIVE (Neg)
== END 2017-04-15 16:42 | DRG 252 ==
LOC: ER 10:14 → ED HOLD 13:27 → EDBEDREQ 18:24 → SUR 3N 19:45 → CICU 2S 04-09 16:00 → SUR 3N 04-11 12:27
PROVIDERS: ADMIT Internal Medicine; ATTEND Internal Medicine
PROC: B42G1ZZ Computerized Tomography (CT Scan) of Left Lower Extremity Arteries using Low Osmolar Contrast (ICD-10-PCS; 2017-04-05)
PROC: B42G1ZZ Computerized Tomography (CT Scan) of Left Lower Extremity Arteries using Low Osmolar Contrast (ICD-10-PCS; 2017-04-05)
PROC: 3E05317 Introduction of Other Thrombolytic into Peripheral Artery, Percutaneous Approach (ICD-10-PCS; principal; 2017-04-09)
PROC: B41F1ZZ Fluoroscopy of Right Lower Extremity Arteries using Low Osmolar Contrast (ICD-10-PCS; 2017-04-09)
PROC: B41C1ZZ Fluoroscopy of Pelvic Arteries using Low Osmolar Contrast (ICD-10-PCS; 2017-04-09)
PROC: 047C3DZ Dilation of Right Common Iliac Artery with Intraluminal Device, Percutaneous Approach (ICD-10-PCS; 2017-04-10)
PROC: 047D3ZZ Dilation of Left Common Iliac Artery, Percutaneous Approach (ICD-10-PCS; 2017-04-10)
PROC: B41C1ZZ Fluoroscopy of Pelvic Arteries using Low Osmolar Contrast (ICD-10-PCS; 2017-04-10)
PROC: B41F1ZZ Fluoroscopy of Right Lower Extremity Arteries using Low Osmolar Contrast (ICD-10-PCS; 2017-04-10)
PROC: 30233N1 Transfusion of Nonautologous Red Blood Cells into Peripheral Vein, Percutaneous Approach (ICD-10-PCS; 2017-04-13)
PROC: BW211ZZ Computerized Tomography (CT Scan) of Abdomen and Pelvis using Low Osmolar Contrast (ICD-10-PCS; 2017-04-13)
DX: T82.856A Stenosis of peripheral vascular stent, initial encounter (principal); E43 Unspecified severe protein-calorie malnutrition; I74.3 Embolism and thrombosis of arteries of the lower extremities; L03.115 Cellulitis of right lower limb; E11.42 Type 2 diabetes mellitus with diabetic polyneuropathy; E11.319 Type 2 diabetes mellitus with unspecified diabetic retinopathy without macular edema; E11.51 Type 2 diabetes mellitus with diabetic peripheral angiopathy without gangrene; I25.10 Atherosclerotic heart disease of native coronary artery without angina pectoris; D64.9 Anemia, unspecified; G89.4 Chronic pain syndrome; Y83.8 Other surgical procedures as the cause of abnormal reaction of the patient, or of later complication, without mention of misadventure at the time of the procedure; I25.2 Old myocardial infarction; Z90.710 Acquired absence of both cervix and uterus; Z88.1 Allergy status to other antibiotic agents; Z88.6 Allergy status to analgesic agent; Z88.8 Allergy status to other drugs, medicaments and biological substances; Z79.899 Other long term (current) drug therapy; Z79.01 Long term (current) use of anticoagulants; Z79.02 Long term (current) use of antithrombotics/antiplatelets; Z79.4 Long term (current) use of insulin; Z82.49 Family history of ischemic heart disease and other diseases of the circulatory system; Y92.89 Other specified places as the place of occurrence of the external cause; Z68.35 Body mass index [BMI] 35.0-35.9, adult
CPT/HCPCS: 36245; 36415; 37211; 37214; 37223; 71045; 73701; 73706; 74177; 75710; 76937; 80048; 80053; 80202; 81001; 82272; 82550; 82728; 82948; 83540; 83550; 83605; 83735; 84145; 84520; 85025; 85027; 85384; 85610; 85730; 86885; 86900; 86901; 86920; 87040; 87070; 87077; 87088; 87186; 93005; 93880; 93922; 93925; 93970; 97116; 97162; 97164; 97530; 99152; 99153; 99285; A4315; A4620; A6212; A6213; A6219; A6402; C1725; C1760; C1769; C1876; C1894; J0696; J1170; J1644; J1956; J2001; J2250; J2405; J2997; J3010; J3370; J3490; J7030; P9016; Q0163; Q9967

== ENCOUNTER 2018-03-31 06:27 | Inpatient (IN) | payer MEDICARE, MEDICAID ==
[~2018-03-31] VITALS: Ht 157.5 cm; Wt 84.9 kg
[2018-03-31] VITALS (13 sets, daily range): BP systolic 112–157; BP diastolic 47–67
[~2018-03-31 06:27] MED LIST changes: -CEPH250T PO; +HYDR-4353 PO; -HYDR-565 PO; -TAM75C PO
[2018-03-31] MEDS ORDERED: CLOP75TA15 PO (06:55)
[2018-03-31] MEDS ORDERED: diazepam PO (06:55)
[2018-03-31] MEDS ORDERED: IRON (06:55)
[2018-03-31] MEDS ORDERED: normal saline 1000ml 1,000 ML IV PRN ×2 (07:00→09:26)
[2018-03-31 07:18] LABS: BASOPHILS # (AUTO) 0.1 X10'3 (0-0.2); BASOPHILS % (AUTO) 0.7 % (0-1); EOSINOPHILS # (AUTO) 0.1 X10'3 (0-0.9); EOSINOPHILS % (AUTO) 1.7 % (0-6); HEMATOCRIT 32.1 % (35.0-45.0); HEMOGLOBIN 10.1 g/dl (12.0-16.0); LYMPHOCYTES # (AUTO) 2.7 X10'3 (1.1-4.8); LYMPHOCYTES % (AUTO) 35.2 % (21-51); MEAN CORPUSCULAR HEMOGLOBIN 25.2 PG (27.0-31.0); MEAN CORPUSCULAR HGB CONC 31.5 % (33.0-36.5); MEAN CORPUSCULAR VOLUME 80.1 FL (78-98); MEAN PLATELET VOLUME 8.3 FL (7.4-10.4); MONOCYTES # (AUTO) 0.4 X10'3 (0-0.9); NEUTROPHILS # (AUTO) 4.4 X10'3 (1.8-7.7); NEUTROPHILS % (AUTO) 57.4 % (42-75); PLATELET COUNT 292 X10'3 (140-440); RED CELL DISTRIBUTION WIDTH 18.2 % (11.5-14.5); WHITE BLOOD COUNT 7.6 X10'3 (4.5-11.0)
[2018-03-31 07:29] LABS: ALBUMIN 3.3 G/DL (3.4-5.0); ANION GAP 10 (8-16); BLOOD UREA NITROGEN 15 MG/DL (7-18); BUN/CREATININE RATIO 23.1 (6.6-38.0); CALCIUM 8.2 MG/DL (8.5-10.1); CHLORIDE 105 MMOL/L (99-107); CREATININE 0.65 MG/DL (0.40-0.90); GLUCOSE 119 MG/DL (70-104); POTASSIUM 3.7 MMOL/L (3.5-5.1); SODIUM 141 MMOL/L (135-145); TOTAL CARBON DIOXIDE 26.4 MMOL/L (24-32); eGFR > 90 ML/MIN
[2018-03-31] MEDS ORDERED: LIDOcaine 1%/PF 5ML 10 MG/ML VIAL ONE (08:18)
[2018-03-31] MEDS ORDERED: iohexol 300mg/ml 100ml inj. ONE (08:18)
[2018-03-31] MEDS ORDERED: diphenhydrAMINE 50 mg/ml inj IV PRN (08:20)
[2018-03-31] MEDS ORDERED: fentaNYL/PF 50MCG/1 ML 2ML syringe IV PRN (08:20)
[2018-03-31] MEDS ORDERED: heparin 1,000 UNITS/NS 500ml 500 ML ICATH ONE (08:20)
[2018-03-31] MEDS ORDERED: LIDOcaine 1%/PF 5ML 10 MG/ML VIAL SQ ONE (08:20)
[2018-03-31] MEDS ORDERED: heparin 1,000 UNITS/NS 500ml 500 ML ONE ×3 (08:23→10:13)
--- NOTE | 2018-03-31 08:32 | NUR ---
patient to angio. suite for scheduled procedure with all belongings.
[2018-03-31] MEDS ORDERED: ondansetron/PF 4mg/2ml inj ONE (08:40)
[2018-03-31] MEDS ORDERED: diphenhydrAMINE 50 mg/ml inj ONE (08:40)
[2018-03-31] MEDS ORDERED: fentaNYL/PF 50MCG/1 ML 2ML syringe ONE ×2 (08:41→09:06)
[2018-03-31] MEDS ORDERED: midazolam 2 mg/2 ml injection ONE (08:51)
[2018-03-31] MEDS ORDERED: tPA-cathflo 2mg/2ml IV flush 4 MG in normal saline 100ml IV soln 100 ML ICATH SCH (09:22)
[2018-03-31] MEDS: heparin 1,000 UNITS/NS 500ml 500 ML IV SCH ×2 (09:22→21:29)
--- NOTE | 2018-03-31 09:50 | NUR ---
Angio RN: Infusion catheter placed per Dr. Guzman, sheath at right groin receiving low dose heparin at 40ml/hr (80units/hr). Infusion catheter infusing TPA 12.5ml/hr (0.5mg/hr) for 6 hours started at 0950. Dose to be decreased to 0.25mg/hr (6.25ml/hr) at 1550. Continue 0.25mg/hr to infusion catheter until pt returns to Angio/IR for TPA follow up on 04/01/18. stated okay to draw from sheath. Report given to Lake ALVARES, stated to call nursing magnetic prospecting supervisor to notify superintendent container terminal RN for any questions or concerns.
[2018-03-31] MEDS ORDERED: HYDROmorphone 1 mg/ml syringe ONE (10:08)
[2018-03-31] MEDS ORDERED: HYDROmorphone inj. 0.5 MG/0.5 ML DISP.SYRIN IV ONE (10:10)
[2018-03-31] MEDS ORDERED: ondansetron/PF 4mg/2ml inj IV ONE (10:10)
[2018-03-31] MEDS ORDERED: CADD PCA waste documentation MC SCH (10:40)
[2018-03-31] MEDS: HYDROmorphone/NS 1 mg/ml CADD 50 ML IV SCH ×7 (11:00→23:00)
[2018-03-31] MEDS ORDERED: ondansetron/PF 4mg/2ml inj IV PRN ×2 (11:25→16:30)
[2018-03-31] MEDS ORDERED: potassium Cl 40MEQ/NS 500ml 500 ML IV PRN ×2 (11:25)
[2018-03-31] MEDS ORDERED: potassium Cl 20 mEq SR tablet PO PRN ×2 (11:25)
[2018-03-31] MEDS ORDERED: acetaminophen 325mg tablet PO PRN ×2 (11:25)
[2018-03-31] MEDS ORDERED: ROPI1TAB4 PO (13:11)
[2018-03-31 16:40] LABS: HEMATOCRIT 34.7 % (35.0-45.0); HEMOGLOBIN 10.9 g/dl (12.0-16.0); MEAN CORPUSCULAR HEMOGLOBIN 25.2 PG (27.0-31.0); MEAN CORPUSCULAR HGB CONC 31.4 % (33.0-36.5); MEAN CORPUSCULAR VOLUME 80.5 FL (78-98); MEAN PLATELET VOLUME 8.6 FL (7.4-10.4); PLATELET COUNT 211 X10'3 (140-440); RED BLOOD COUNT 4.31 X10'6 (4.20-5.60); RED CELL DISTRIBUTION WIDTH 18.8 % (11.5-14.5); WHITE BLOOD COUNT 6.2 X10'3 (4.5-11.0)
--- NOTE | 2018-03-31 18:26 | NUR ---
Patient in room CICU 2010. I have received report from Lake ALVARES and had the opportunity to ask questions and assume patient care. Patient laying in bed attempting to eat dinner, complaining of nausea. Sheath site assessed, area soft with no hematoma noted. Dorsalis pedis pulses palpable bilaterally, foot warm and normal in color with cap refill less than 3 seconds. HR in 60s in sinus rhythm, BP 142/55. Heparin and tPA infusing per MD orders through R iliac sheath. Will continue to monitor patient.
[2018-03-31] MEDS: docusate sod 100mg capsule PO SCH (19:20)
[2018-03-31] MEDS: ROPINIRole 1mg tablet PO SCH (20:04)
--- NOTE | 2018-03-31 20:28 | NUR ---
Patient having difficult time voiding in flat position due to presence of iliac sheath. Patient attempted bedpan x4 with only 100 ml out, bladder scan reveals 755ccs. Notified Todd Garcia NP, informed him of current tPA/heparin infusion. Order obtained for straight catheterization q6H PRN for bladder scan greater than 400ccs and unable to void.
--- NOTE | 2018-03-31 21:00 | NUR ---
Patient straight cathed, tolerated well. 750 ccs urine out, patient reports significant relief to bladder. Will continue to assess voiding pattern and further need for straight catheterization in 6 hrs.
[2018-04-01] VITALS (21 sets, daily range): BP systolic 97–164; BP diastolic 48–92
--- NOTE | 2018-04-01 | NUR ---
Patient complaining of back pain, repositioned for comfort and encouraged to use CADD. No other changes in condition, will continue to monitor patient.
[2018-04-01] MEDS: HYDROmorphone/NS 1 mg/ml CADD 50 ML IV SCH ×9 (01:00→16:46)
[2018-04-01 01:23] LABS: BASOPHILS % (AUTO) 0.5 % (0-1); EOSINOPHILS # (AUTO) 0.1 X10'3 (0-0.9); EOSINOPHILS % (AUTO) 1.6 % (0-6); HEMATOCRIT 33.5 % (35.0-45.0); LYMPHOCYTES % (AUTO) 36.4 % (21-51); MEAN CORPUSCULAR HEMOGLOBIN 24.3 PG (27.0-31.0); MEAN CORPUSCULAR HGB CONC 29.9 % (33.0-36.5); MEAN CORPUSCULAR VOLUME 81.3 FL (78-98); MEAN PLATELET VOLUME 8.9 FL (7.4-10.4); MONOCYTES # (AUTO) 0.4 X10'3 (0-0.9); MONOCYTES % (AUTO) 7.1 % (2-12); NEUTROPHILS # (AUTO) 2.9 X10'3 (1.8-7.7); NEUTROPHILS % (AUTO) 54.4 % (42-75); PLATELET COUNT 203 X10'3 (140-440); RED BLOOD COUNT 4.13 X10'6 (4.20-5.60); RED CELL DISTRIBUTION WIDTH 17.7 % (11.5-14.5); WHITE BLOOD COUNT 5.4 X10'3 (4.5-11.0)
[2018-04-01 02:06] LABS: INR 1.1 INR; PROTHROMBIN TIME 11.3 SECONDS (9.0-12.0)
[2018-04-01 02:20] LABS: ALANINE AMINOTRANSFERASE 18 U/L (12-78); ALBUMIN 2.7 G/DL (3.4-5.0); ALBUMIN/GLOBULIN RATIO 0.8 (1.1-1.5); ALKALINE PHOSPHATASE 101 IU/L (46-116); ANION GAP 8 (8-16); ASPARTATE AMINO TRANSFERASE 13 U/L (10-37); BILIRUBIN,TOTAL 0.4 MG/DL (0.1-1.0); BLOOD UREA NITROGEN 9 MG/DL (7-18); BUN/CREATININE RATIO 12.9 (6.6-38.0); CALCIUM 7.5 MG/DL (8.5-10.1); CHLORIDE 107 MMOL/L (99-107); GLUCOSE 87 MG/DL (70-104); MAGNESIUM 1.6 MG/DL (1.5-2.4); PHOSPHORUS 3.7 MG/DL (2.3-4.5); POTASSIUM 3.7 MMOL/L (3.5-5.1); SODIUM 142 MMOL/L (135-145); TOTAL CARBON DIOXIDE 27.1 MMOL/L (24-32); TOTAL PROTEIN 6.3 G/DL (6.4-8.2); eGFR 85 ML/MIN
--- NOTE | 2018-04-01 03:44 | NUR ---
Patient unable to void on bedpan, bladder scan reveals 250 ccs in bladder. Patient reports urge to void but that "my bladder doesn't hurt like last time". Patient able to fall asleep easily after scan. Will continue to monitor patient for retention.
--- NOTE | 2018-04-01 06:19 | NUR ---
Problems reprioritized. Patient report given, questions answered & plan of care reviewed with Lake ALVARES.
--- NOTE | 2018-04-01 06:35 | NUR ---
Patient in room CICU 2010. I have received report from DIA Gerardo and had the opportunity to ask questions and assume patient care.
[2018-04-01] MEDS: ROPINIRole 1mg tablet PO SCH ×2 (06:36→13:05)
[2018-04-01] MEDS: docusate sod 100mg capsule PO SCH (06:36)
--- NOTE | 2018-04-01 10:38 | NUR ---
THAO Crowe RN at to take pt to IR lab. She is transported on IR portable telemetry and taken by Amrita alone. , Richar, osman.
[2018-04-01] MEDS ORDERED: iohexol 300mg/ml 100ml inj. ONE (10:55)
[2018-04-01] MEDS ORDERED: LIDOcaine 1%/PF 5ML 10 MG/ML VIAL ONE (11:23)
[2018-04-01] MEDS ORDERED: normal saline 1000ml 1,000 ML IV SCH (11:38)
[2018-04-01 15:10] LABS: HEMATOCRIT 30.4 % (35.0-45.0); HEMOGLOBIN 9.7 g/dl (12.0-16.0); MEAN CORPUSCULAR HEMOGLOBIN 25.4 PG (27.0-31.0); MEAN CORPUSCULAR HGB CONC 31.8 % (33.0-36.5); MEAN CORPUSCULAR VOLUME 80.1 FL (78-98); MEAN PLATELET VOLUME 8.8 FL (7.4-10.4); PLATELET COUNT 173 X10'3 (140-440); RED CELL DISTRIBUTION WIDTH 18.2 % (11.5-14.5); WHITE BLOOD COUNT 6.6 X10'3 (4.5-11.0)
--- NOTE | 2018-04-01 17:20 | NUR ---
Pt dc'd home with dc instructions and all personal property intact. Time was given for and questions were encouraged and answered. Pt stated 'I'm ready to go home now'. Pt was taken by SANDRITA Castaneda via wheelchair to her PO where her Richar was waiting for her.
== END 2018-04-01 17:31 | disposition home or self-care (01) | DRG 316 ==
LOC: SSTAY O 06:27 → CICU 2S 11:15
PROVIDERS: ADMIT Radiology Diagnostic Radiology; ATTEND Internal Medicine Critical Care Medicine
PROC: B41C1ZZ Fluoroscopy of Pelvic Arteries using Low Osmolar Contrast (ICD-10-PCS; principal; 2018-03-31)
PROC: B41F1ZZ Fluoroscopy of Right Lower Extremity Arteries using Low Osmolar Contrast (ICD-10-PCS; 2018-03-31)
PROC: 3E05317 Introduction of Other Thrombolytic into Peripheral Artery, Percutaneous Approach (ICD-10-PCS; 2018-03-31)
PROC: 0YH933Z Insertion of Infusion Device into Right Lower Extremity, Percutaneous Approach (ICD-10-PCS; 2018-03-31)
PROC: 3E05317 Introduction of Other Thrombolytic into Peripheral Artery, Percutaneous Approach (ICD-10-PCS; 2018-03-31)
PROC: B41F1ZZ Fluoroscopy of Right Lower Extremity Arteries using Low Osmolar Contrast (ICD-10-PCS; 2018-04-01)
DX: T82.856A Stenosis of peripheral vascular stent, initial encounter (principal); E11.40 Type 2 diabetes mellitus with diabetic neuropathy, unspecified; E11.51 Type 2 diabetes mellitus with diabetic peripheral angiopathy without gangrene; I25.10 Atherosclerotic heart disease of native coronary artery without angina pectoris; M25.551 Pain in right hip; G89.29 Other chronic pain; M54.9 Dorsalgia, unspecified; Y82.8 Other medical devices associated with adverse incidents; Z88.8 Allergy status to other drugs, medicaments and biological substances; Z79.899 Other long term (current) drug therapy; Z79.4 Long term (current) use of insulin; Z82.49 Family history of ischemic heart disease and other diseases of the circulatory system; Y92.89 Other specified places as the place of occurrence of the external cause
CPT/HCPCS: 36245; 37211; 37214; G0269; 36415; 75710; 75736; 76937; 80048; 80053; 82948; 83735; 84100; 85025; 85027; 85384; 85610; 87070; 99152; 99153; A4620; C1760; C1769; C1894; G0378; J1170; J1200; J1644; J2001; J2250; J2405; J2997; J3010; J7030; Q9967

== ENCOUNTER 2018-04-09 10:13 | Day surgery (SDC) | payer MEDICARE, MEDICAID ==
[~2018-04-09] VITALS: Ht 157.5 cm; Wt 82.3 kg
[~2018-04-09 10:13] MED LIST changes: +CLOP75TA15 PO; -CLOP75TA35 PO; -LANTUS SUBCUT; -LISI10TA4 PO; -NITR100C6 PO; +ROPI1TAB4 PO; -ROPI4TAB3 PO
[2018-04-09 10:45] VITALS: BP 141/64
[2018-04-09] MEDS ORDERED: glucagon, human recombinant 1mg kit SUBCUT PRN (11:10)
[2018-04-09] MEDS ORDERED: diphenhydrAMINE 25mg capsule PO PRN (11:10)
[2018-04-09] MEDS ORDERED: normal saline 1000ml 1,000 ML IV SCH (11:10)
[2018-04-09] MEDS ORDERED: MESSAGE TO PHARMACY PO ONE (11:10)
[2018-04-09] MEDS ORDERED: insulin Lispro (HumaLOG) vial - multi-dose SQ SCH (11:10)
[2018-04-09] MEDS ORDERED: dextrose 50%-water 50ml dispensing syringe IV PRN ×2 (11:10)
[2018-04-09] MEDS ORDERED: LORazepam 0.5 MG tablet PO PRN (11:10)
[2018-04-09] MEDS ORDERED: nitroGLYCERIN 0.4mg SUBLingual tab SL PRN (11:10)
[2018-04-09] MEDS ORDERED: dextrose ORAL solution 15 GM/59 ML bottle PO PRN ×2 (11:10)
[2018-04-09] MEDS ORDERED: midazolam 2 mg/2 ml injection ONE (11:20)
[2018-04-09] MEDS ORDERED: fentaNYL/PF 50MCG/1 ML 2ML syringe ONE (11:20)
[2018-04-09] MEDS ORDERED: iohexol 350 MG/ML 50ML vial IV ONE (11:20)
[2018-04-09] MEDS ORDERED: LIDOcaine 1% (10mg/ml)w/preservative injection 20ml MDV ONE (11:20)
[2018-04-09] MEDS ORDERED: iohexol 350MG/ML 100ml bottle IV ONE (11:20)
[2018-04-09] MEDS ORDERED: ROPI1TAB2 PO (11:52)
[2018-04-09] MEDS ORDERED: POTA20PA40 PO (11:52)
[2018-04-09] MEDS ORDERED: INSU100C4 SQ (11:52)
[2018-04-09] MEDS ORDERED: TRAZ-218 PO (11:52)
[2018-04-09] MEDS ORDERED: FERR-119 (11:52)
[2018-04-09] MEDS ORDERED: NITR0.4T51 SL (11:52)
[2018-04-09] MEDS ORDERED: CIPR-260 PO (11:52)
[2018-04-09] MEDS ORDERED: HYDR-4353 PO (11:52)
[2018-04-09] MEDS ORDERED: CLOP75TA15 PO (11:52)
[2018-04-09 11:58] LABS: BASOPHILS # (AUTO) 0.1 X10'3 (0-0.2); BASOPHILS % (AUTO) 1.4 % (0-1); EOSINOPHILS # (AUTO) 0.1 X10'3 (0-0.9); EOSINOPHILS % (AUTO) 2.4 % (0-6); HEMATOCRIT 37.5 % (35.0-45.0); HEMOGLOBIN 11.8 g/dl (12.0-16.0); LYMPHOCYTES # (AUTO) 1.7 X10'3 (1.1-4.8); MEAN CORPUSCULAR HEMOGLOBIN 25.4 PG (27.0-31.0); MEAN CORPUSCULAR HGB CONC 31.5 % (33.0-36.5); MEAN CORPUSCULAR VOLUME 80.7 FL (78-98); MONOCYTES # (AUTO) 0.3 X10'3 (0-0.9); MONOCYTES % (AUTO) 5.7 % (2-12); NEUTROPHILS # (AUTO) 3.7 X10'3 (1.8-7.7); NEUTROPHILS % (AUTO) 62.5 % (42-75); PLATELET COUNT 343 X10'3 (140-440); RED BLOOD COUNT 4.65 X10'6 (4.20-5.60); RED CELL DISTRIBUTION WIDTH 19.7 % (11.5-14.5); WHITE BLOOD COUNT 5.9 X10'3 (4.5-11.0)
[2018-04-09 12:07] LABS: ALBUMIN 3.5 G/DL (3.4-5.0); ANION GAP 8 (8-16); BLOOD UREA NITROGEN 13 MG/DL (7-18); BUN/CREATININE RATIO 22.4 (6.6-38.0); CALCIUM 8.6 MG/DL (8.5-10.1); CHLORIDE 103 MMOL/L (99-107); CREATININE 0.58 MG/DL (0.40-0.90); GLUCOSE 120 MG/DL (70-104); SODIUM 138 MMOL/L (135-145); TOTAL CARBON DIOXIDE 27.1 MMOL/L (24-32); eGFR > 90 ML/MIN
[2018-04-09 12:11] LABS: POTASSIUM 4.4 MMOL/L (3.5-5.1)
[2018-04-09 12:31] LABS: PARTIAL THROMBOPLASTIN TIME 21 SECONDS (22-32); PROTHROMBIN TIME 9.7 SECONDS (9.0-12.0)
--- NOTE | 2018-04-09 12:40 | NUR ---
PROCEDURE CANCELLED BY DR ALCANTARA AND RESCHEDULED FOR NEXT WEEK. PT AMBULATED TO HOSPITAL ENTRANCE AND WAS DISCHARGED HOME WITH ALL BELONGINGS.
[2018-04-09] MEDS ORDERED: insulin glargine (Lantus) pen - multi-dose SQ SCH (21:00)
== END 2018-04-09 12:40 | disposition home or self-care (01) ==
LOC: SSTAY O 10:13
PROVIDERS: ATTEND Internal Medicine Cardiovascular Disease
DX: R94.39 Abnormal result of other cardiovascular function study (principal); E11.9 Type 2 diabetes mellitus without complications; M19.90 Unspecified osteoarthritis, unspecified site; I50.9 Heart failure, unspecified; G25.81 Restless legs syndrome; Z90.710 Acquired absence of both cervix and uterus; Z98.84 Bariatric surgery status; F17.210 Nicotine dependence, cigarettes, uncomplicated; Z79.899 Other long term (current) drug therapy; Z98.890 Other specified postprocedural states; Z53.8 Procedure and treatment not carried out for other reasons
CPT/HCPCS: 36415; 80048; 85025; 85610; 85730; 93005; A6257; J1644; J2001; J2250; J3010; J7030; Q0163; Q9967; J1815

== ENCOUNTER 2018-04-16 10:43 | Day surgery (SDC) | payer MEDICARE, MEDICAID ==
[2018-04-15 13:05] LABS: BASOPHILS % (AUTO) 0.6 % (0-1); EOSINOPHILS # (AUTO) 0.1 X10'3 (0-0.9); EOSINOPHILS % (AUTO) 2.2 % (0-6); HEMATOCRIT 35.6 % (35.0-45.0); HEMOGLOBIN 11.4 g/dl (12.0-16.0); LYMPHOCYTES # (AUTO) 1.7 X10'3 (1.1-4.8); LYMPHOCYTES % (AUTO) 24.9 % (21-51); MEAN CORPUSCULAR HGB CONC 32.1 % (33.0-36.5); MEAN PLATELET VOLUME 8.6 FL (7.4-10.4); MONOCYTES # (AUTO) 0.3 X10'3 (0-0.9); MONOCYTES % (AUTO) 4.7 % (2-12); NEUTROPHILS # (AUTO) 4.5 X10'3 (1.8-7.7); NEUTROPHILS % (AUTO) 67.6 % (42-75); PLATELET COUNT 363 X10'3 (140-440); RED BLOOD COUNT 4.39 X10'6 (4.20-5.60); RED CELL DISTRIBUTION WIDTH 20.1 % (11.5-14.5); WHITE BLOOD COUNT 6.6 X10'3 (4.5-11.0)
[2018-04-15 13:20] LABS: PARTIAL THROMBOPLASTIN TIME 25 SECONDS (22-32); PROTHROMBIN TIME 9.9 SECONDS (9.0-12.0)
[2018-04-15 13:23] LABS: ANISOCYTOSIS 2+; PLATELET ESTIMATE NORMAL
[2018-04-15 13:30] LABS: ALANINE AMINOTRANSFERASE 27 U/L (12-78); ALBUMIN 3.4 G/DL (3.4-5.0); ALBUMIN/GLOBULIN RATIO 0.8 (1.1-1.5); ALKALINE PHOSPHATASE 117 IU/L (46-116); ANION GAP 11 (8-16); ASPARTATE AMINO TRANSFERASE 14 U/L (10-37); BILIRUBIN,TOTAL 0.4 MG/DL (0.1-1.0); BLOOD UREA NITROGEN 10 MG/DL (7-18); BUN/CREATININE RATIO 15.9 (6.6-38.0); CALCIUM 8.4 MG/DL (8.5-10.1); CHLORIDE 103 MMOL/L (99-107); CREATININE 0.63 MG/DL (0.40-0.90); GLUCOSE 143 MG/DL (70-104); POTASSIUM 4.1 MMOL/L (3.5-5.1); SODIUM 141 MMOL/L (135-145); TOTAL CARBON DIOXIDE 27.1 MMOL/L (24-32); TOTAL PROTEIN 7.5 G/DL (6.4-8.2); eGFR > 90 ML/MIN
[2018-04-16] VITALS (11 sets, daily range): BP systolic 107–145; BP diastolic 51–72
[~2018-04-16] VITALS: Ht 157.5 cm; Wt 82.8 kg
[~2018-04-16 10:43] MED LIST changes: +CIPR-260 PO; +FERR-119 PO; +INSU100C4 SQ; +NITR0.4T51 SL; +POTA20PA40 PO; +ROPI1TAB2 PO; -ROPI1TAB4 PO; +TRAZ-218 PO
[2018-04-16] MEDS ORDERED: glucagon, human recombinant 1mg kit SUBCUT PRN (11:25)
[2018-04-16] MEDS ORDERED: LORazepam 0.5 MG tablet PO PRN (11:25)
[2018-04-16] MEDS ORDERED: diphenhydrAMINE 25mg capsule PO PRN (11:25)
[2018-04-16] MEDS ORDERED: MESSAGE TO PHARMACY PO ONE (11:25)
[2018-04-16] MEDS ORDERED: dextrose ORAL solution 15 GM/59 ML bottle PO PRN ×2 (11:25)
[2018-04-16] MEDS ORDERED: insulin Lispro (HumaLOG) vial - multi-dose SQ SCH (11:25)
[2018-04-16] MEDS ORDERED: nitroGLYCERIN 0.4mg SUBLingual tab SL PRN (11:25)
[2018-04-16] MEDS ORDERED: normal saline 1000ml 1,000 ML IV SCH (11:25)
[2018-04-16] MEDS ORDERED: dextrose 50%-water 50ml dispensing syringe IV PRN ×2 (11:25)
[2018-04-16] MEDS ORDERED: DIAZ5TAB4 PO (11:27)
[2018-04-16] MEDS ORDERED: FURO-150 PO (11:27)
[2018-04-16 12:27] LABS: HEMOGLOBIN A1C 7.8 % (4.5-6.2)
[2018-04-16] MEDS ORDERED: LIDOcaine 1% (10mg/ml)w/preservative injection 20ml MDV ONE (13:04)
[2018-04-16] MEDS ORDERED: iohexol 350MG/ML 100ml bottle IV ONE (13:04)
[2018-04-16] MEDS ORDERED: iohexol 350 MG/ML 50ML vial IV ONE (13:04)
[2018-04-16] MEDS ORDERED: fentaNYL/PF 50MCG/1 ML 2ML syringe ONE (13:17)
[2018-04-16] MEDS ORDERED: midazolam 2 mg/2 ml injection ONE (13:17)
[2018-04-16] MEDS ORDERED: insulin glargine (Lantus) pen - multi-dose SQ SCH (21:00)
[2018-04-17] MEDS ORDERED: CYCL-1 PO (09:17)
== END 2018-04-16 20:30 | disposition home or self-care (01) ==
LOC: SSTAY O 10:43
PROVIDERS: ATTEND Internal Medicine Cardiovascular Disease
DX: I25.10 Atherosclerotic heart disease of native coronary artery without angina pectoris (principal); I25.2 Old myocardial infarction; I10 Essential (primary) hypertension; E78.5 Hyperlipidemia, unspecified; M19.90 Unspecified osteoarthritis, unspecified site; M47.819 Spondylosis without myelopathy or radiculopathy, site unspecified; E11.622 Type 2 diabetes mellitus with other skin ulcer; F32.9 Major depressive disorder, single episode, unspecified; Z72.89 Other problems related to lifestyle; Z87.2 Personal history of diseases of the skin and subcutaneous tissue; Z90.710 Acquired absence of both cervix and uterus; Z86.79 Personal history of other diseases of the circulatory system; Z95.828 Presence of other vascular implants and grafts; Z98.84 Bariatric surgery status; Z79.2 Long term (current) use of antibiotics; Z79.891 Long term (current) use of opiate analgesic; Z79.4 Long term (current) use of insulin; Z88.2 Allergy status to sulfonamides; Z86.69 Personal history of other diseases of the nervous system and sense organs; Z86.74 Personal history of sudden cardiac arrest; Z87.891 Personal history of nicotine dependence; Z87.01 Personal history of pneumonia (recurrent); Z87.09 Personal history of other diseases of the respiratory system; Z90.49 Acquired absence of other specified parts of digestive tract; Z87.442 Personal history of urinary calculi; Z87.440 Personal history of urinary (tract) infections; Z79.899 Other long term (current) drug therapy; Z88.8 Allergy status to other drugs, medicaments and biological substances; Z98.890 Other specified postprocedural states; Z82.49 Family history of ischemic heart disease and other diseases of the circulatory system
CPT/HCPCS: 36415; 71046; 80053; 82948; 83036; 85025; 85610; 85730; 93458; 99152; 99153; A6257; C1760; J1644; J2001; J2250; J3010; J7030; Q0163; Q9967; C1769; J1815

== ENCOUNTER 2018-04-17 06:29 | Emergency (ER) | payer MEDICARE, MEDICAID ==
[~2018-04-17] VITALS: Ht 165.1 cm; Wt 82.3 kg
[~2018-04-17 06:29] MED LIST changes: +DIAZ5TAB4 PO; +FURO-150 PO; -INSU100C10 SQ
[2018-04-17] MEDS ORDERED: magnesium oxide 400mg tablet PO ONE ×2 (07:15→09:10)
[2018-04-17 08:08] LABS: BASOPHILS # (AUTO) 0.1 X10'3 (0-0.2); BASOPHILS % (AUTO) 0.8 % (0-1); EOSINOPHILS # (AUTO) 0.1 X10'3 (0-0.9); EOSINOPHILS % (AUTO) 2.4 % (0-6); HEMATOCRIT 32.7 % (35.0-45.0); HEMOGLOBIN 10.4 g/dl (12.0-16.0); LYMPHOCYTES # (AUTO) 1.6 X10'3 (1.1-4.8); LYMPHOCYTES % (AUTO) 25.7 % (21-51); MEAN CORPUSCULAR HEMOGLOBIN 26.2 PG (27.0-31.0); MEAN CORPUSCULAR HGB CONC 31.9 % (33.0-36.5); MEAN CORPUSCULAR VOLUME 82.1 FL (78-98); MEAN PLATELET VOLUME 8.6 FL (7.4-10.4); MONOCYTES # (AUTO) 0.4 X10'3 (0-0.9); NEUTROPHILS % (AUTO) 64.1 % (42-75); PLATELET COUNT 298 X10'3 (140-440); RED BLOOD COUNT 3.98 X10'6 (4.20-5.60); RED CELL DISTRIBUTION WIDTH 20.6 % (11.5-14.5); WHITE BLOOD COUNT 6.2 X10'3 (4.5-11.0)
[2018-04-17 08:18] LABS: ALANINE AMINOTRANSFERASE 20 U/L (12-78); ALBUMIN/GLOBULIN RATIO 0.8 (1.1-1.5); ALKALINE PHOSPHATASE 112 IU/L (46-116); ANION GAP 10 (8-16); ASPARTATE AMINO TRANSFERASE 16 U/L (10-37); BILIRUBIN,TOTAL 0.1 MG/DL (0.1-1.0); BLOOD UREA NITROGEN 11 MG/DL (7-18); BUN/CREATININE RATIO 15.9 (6.6-38.0); CALCIUM 8.1 MG/DL (8.5-10.1); CHLORIDE 106 MMOL/L (99-107); CREATININE 0.69 MG/DL (0.40-0.90); GLUCOSE 171 MG/DL (70-104); MAGNESIUM 1.8 MG/DL (1.5-2.4); POTASSIUM 4.4 MMOL/L (3.5-5.1); SODIUM 139 MMOL/L (135-145); TOTAL CARBON DIOXIDE 23.5 MMOL/L (24-32); TOTAL PROTEIN 6.9 G/DL (6.4-8.2); eGFR 86 ML/MIN
[2018-04-17] MEDS ORDERED: calcium carbonate 500mg tablet PO ONE (08:35)
[2018-04-17 08:53] LABS: ANISOCYTOSIS 3+; PLATELET ESTIMATE NORMAL
[2018-04-17] MEDS ORDERED: CYCL-1 PO (09:17)
[2018-04-17 09:35] LABS: INR 0.9 INR; PARTIAL THROMBOPLASTIN TIME 21 SECONDS (22-32); PROTHROMBIN TIME 9.6 SECONDS (9.0-12.0)
--- NOTE | 2018-04-17 10:03 | NUR ---
pt states she has medication at home and would just like to go home. aware
[2018-04-17 10:17] VITALS: BP 136/74
== END 2018-04-17 10:19 | disposition home or self-care (01) ==
LOC: ER 06:29
DX: I73.9 Peripheral vascular disease, unspecified (principal); M79.605 Pain in left leg; M79.604 Pain in right leg; E11.42 Type 2 diabetes mellitus with diabetic polyneuropathy; I25.2 Old myocardial infarction; G89.29 Other chronic pain; Z98.61 Coronary angioplasty status; Z90.710 Acquired absence of both cervix and uterus; Z98.890 Other specified postprocedural states; Z88.5 Allergy status to narcotic agent; Z88.1 Allergy status to other antibiotic agents; Z88.8 Allergy status to other drugs, medicaments and biological substances; Z79.4 Long term (current) use of insulin; Z79.899 Other long term (current) drug therapy
CPT/HCPCS: 36415; 80053; 83735; 85025; 85610; 85730; 99284

== ENCOUNTER → 2018-07-18 | Emergency (ER) | payer MEDICARE, MEDICAID ==
[~2018-07-18] VITALS: Ht 157.5 cm; Wt 79.5 kg
[~2018-07-18] MED LIST changes: +CYCL-1 PO; +HYDROcodone/acetaminophen 10/325mg tab PO ONE; +orphenadrine citrate 60mg/2ml inj. IM ONE
--- NOTE | 2018-07-18 08:36 | NUR ---
awaiting for ED provider.
[2018-07-18 10:36] VITALS: BP 160/89
== END | disposition home or self-care (01) ==
LOC: ER 08:02
DX: M62.838 Other muscle spasm (principal); I25.10 Atherosclerotic heart disease of native coronary artery without angina pectoris; I25.2 Old myocardial infarction; E11.42 Type 2 diabetes mellitus with diabetic polyneuropathy; G89.29 Other chronic pain; Z98.62 Peripheral vascular angioplasty status; Z90.710 Acquired absence of both cervix and uterus; Z98.890 Other specified postprocedural states; Z88.5 Allergy status to narcotic agent; Z88.1 Allergy status to other antibiotic agents; Z88.8 Allergy status to other drugs, medicaments and biological substances; Z79.899 Other long term (current) drug therapy; Z87.891 Personal history of nicotine dependence
CPT/HCPCS: 82948; 96372; 99283; J2360

== ENCOUNTER 2019-01-05 17:32 | Inpatient (IN) | payer MEDICARE, MEDICAID ==
[~2019-01-05] VITALS: Ht 157.5 cm; Wt 100.0 kg
[~2019-01-05 17:32] MED LIST changes: -HYDROcodone/acetaminophen 10/325mg tab PO ONE; -TRAZ-218 PO; +TRAZ-251 PO; -orphenadrine citrate 60mg/2ml inj. IM ONE
[2019-01-05 18:17] LABS: BASOPHILS % (AUTO) 0.8 % (0-1); EOSINOPHILS # (AUTO) 0.1 X10'3 (0-0.9); EOSINOPHILS % (AUTO) 2.3 % (0-6); HEMATOCRIT 32.5 % (35.0-45.0); HEMOGLOBIN 10.3 g/dl (12.0-16.0); LYMPHOCYTES # (AUTO) 1.6 X10'3 (1.1-4.8); LYMPHOCYTES % (AUTO) 29.3 % (21-51); MEAN CORPUSCULAR HEMOGLOBIN 26.2 PG (27.0-31.0); MEAN CORPUSCULAR HGB CONC 31.6 g/dL (33.0-36.5); MEAN CORPUSCULAR VOLUME 82.9 FL (78-98); MEAN PLATELET VOLUME 8.4 FL (7.4-10.4); MONOCYTES # (AUTO) 0.3 X10'3 (0-0.9); MONOCYTES % (AUTO) 5.1 % (2-12); NEUTROPHILS # (AUTO) 3.5 X10'3 (1.8-7.7); NEUTROPHILS % (AUTO) 62.5 % (42-75); PLATELET COUNT 287 X10'3 (140-440); RED BLOOD COUNT 3.93 X10'6 (4.20-5.60); RED CELL DISTRIBUTION WIDTH 16.9 % (11.5-14.5); WHITE BLOOD COUNT 5.6 X10'3 (4.5-11.0)
[2019-01-05 18:29] LABS: ALANINE AMINOTRANSFERASE 20 U/L (12-78); ALBUMIN 3.3 G/DL (3.4-5.0); ALBUMIN/GLOBULIN RATIO 0.8 (1.1-1.5); ALKALINE PHOSPHATASE 128 IU/L (46-116); ANION GAP 8 (8-16); ASPARTATE AMINO TRANSFERASE 9 U/L (10-37); BILIRUBIN,TOTAL 0.3 MG/DL (0.1-1.0); BLOOD UREA NITROGEN 9 MG/DL (7-18); BUN/CREATININE RATIO 12.3 (6.6-38.0); CALCIUM 8.6 MG/DL (8.5-10.1); CHLORIDE 105 MMOL/L (99-107); CREATININE 0.73 MG/DL (0.40-0.90); GLUCOSE 230 MG/DL (70-104); SODIUM 142 MMOL/L (135-145); TOTAL CARBON DIOXIDE 28.8 MMOL/L (24-32); TOTAL PROTEIN 7.6 G/DL (6.4-8.2); eGFR 81 ML/MIN
[2019-01-05 19:31] LABS: D-DIMER 1.97 MG/L FEU (0-0.50)
--- NOTE | 2019-01-05 20:25 | NUR ---
notified dr rodrigues regarding dvt in rgt groin as told by event technician ,no new orders yet.
--- NOTE | 2019-01-05 20:36 | NUR ---
decontamination technician in room will start an iv as dental equipment technician is done with the pt.
[2019-01-05] MEDS ORDERED: HYDROmorphone 1 mg/ml syringe IV ONE ×2 (20:50→23:35)
[2019-01-05] MEDS ORDERED: enoxaparin 100mg/ml syringe SUBCUT ONE (20:50)
--- NOTE | 2019-01-05 21:33 | NUR ---
DR CHAVEZ TALKING WITH PT . PT AWAITING HOSPITALIST. VSS. JUST GIVEN DILAUDID 1 MG IV AND LOVENOX.
[2019-01-05] MEDS ORDERED: furosemide 20MG tablet PO PRN (22:35)
[2019-01-05] MEDS ORDERED: nitroGLYCERIN 0.4mg SUBLingual tab SL PRN (22:35)
[2019-01-05] MEDS ORDERED: glucagon, human recombinant 1mg kit SUBCUT PRN (22:40)
[2019-01-05] MEDS ORDERED: insulin Lispro (HumaLOG) vial - multi-dose SQ SCH (22:40)
[2019-01-05] MEDS ORDERED: magnesium 2GM in 50ml NS 50 ML IV PRN (22:40)
[2019-01-05] MEDS ORDERED: potassium Cl 20 mEq SR tablet PO PRN ×2 (22:40)
[2019-01-05] MEDS ORDERED: acetaminophen 325mg tablet PO PRN (22:40)
[2019-01-05] MEDS ORDERED: MESSAGE TO PHARMACY PO ONE (22:40)
[2019-01-05] MEDS ORDERED: magnesium Cl slow-release 64mg tablet PO PRN (22:40)
[2019-01-05] MEDS ORDERED: mag hydrox/Alum hydrox/simeth 30ml oral suspension PO PRN (22:40)
[2019-01-05] MEDS ORDERED: dextrose ORAL solution 15 GM/59 ML bottle PO PRN ×2 (22:40)
[2019-01-05] MEDS ORDERED: potassium CL 10mEq/100ml bag 100 ML IV PRN ×2 (22:40)
[2019-01-05] MEDS ORDERED: dextrose 50%-water 50ml dispensing syringe IV PRN ×2 (22:40)
[2019-01-05] MEDS ORDERED: ondansetron/PF 4mg/2ml inj IV PRN (22:40)
[2019-01-05] MEDS ORDERED: magnesium 4gm in 100ml NS 100 ML IV PRN (22:40)
[2019-01-05 22:59] LABS: HEMOGLOBIN A1C 7.6 % (4.5-6.2)
--- NOTE | 2019-01-05 23:40 | NUR ---
Patient in room ED HALL10. I have received report from Leigh Ann ALVARES and had the opportunity to ask questions and assume patient care.
--- NOTE | 2019-01-05 23:45 | NUR ---
Patient in room PCU 3024. I have received report from and had the opportunity to ask questions and assume patient care with Ele ALVARES.
[2019-01-05 23:50] VITALS: BP 109/51
--- NOTE | 2019-01-05 23:50 | NUR ---
Patient arrived to unit via gurney and one staff member at 2350. Patient oriented to unit policies, vital signs times, medication times, and meal times. Placed on tele monitor. Vital signs stable. MRSA nasal swab collected.
[2019-01-06 02:00] VITALS: BP 104/69
[2019-01-06 05:08] LABS: BASOPHILS % (AUTO) 0.8 % (0-1); EOSINOPHILS # (AUTO) 0.1 X10'3 (0-0.9); EOSINOPHILS % (AUTO) 2.5 % (0-6); HEMATOCRIT 31.7 % (35.0-45.0); HEMOGLOBIN 10.1 g/dl (12.0-16.0); LYMPHOCYTES # (AUTO) 2.9 X10'3 (1.1-4.8); LYMPHOCYTES % (AUTO) 49.4 % (21-51); MEAN CORPUSCULAR HEMOGLOBIN 26.3 PG (27.0-31.0); MEAN CORPUSCULAR VOLUME 82.1 FL (78-98); MEAN PLATELET VOLUME 8.5 FL (7.4-10.4); MONOCYTES # (AUTO) 0.4 X10'3 (0-0.9); MONOCYTES % (AUTO) 6.7 % (2-12); NEUTROPHILS # (AUTO) 2.3 X10'3 (1.8-7.7); NEUTROPHILS % (AUTO) 40.6 % (42-75); PLATELET COUNT 261 X10'3 (140-440); RED BLOOD COUNT 3.86 X10'6 (4.20-5.60); RED CELL DISTRIBUTION WIDTH 16.8 % (11.5-14.5); WHITE BLOOD COUNT 5.8 X10'3 (4.5-11.0)
[2019-01-06 05:33] LABS: ALANINE AMINOTRANSFERASE 17 U/L (12-78); ALBUMIN 2.9 G/DL (3.4-5.0); ALBUMIN/GLOBULIN RATIO 0.8 (1.1-1.5); ALKALINE PHOSPHATASE 110 IU/L (46-116); ANION GAP 5 (8-16); ASPARTATE AMINO TRANSFERASE 16 U/L (10-37); BILIRUBIN,TOTAL 0.3 MG/DL (0.1-1.0); BLOOD UREA NITROGEN 7 MG/DL (7-18); BUN/CREATININE RATIO 10.8 (6.6-38.0); CALCIUM 8.4 MG/DL (8.5-10.1); CHLORIDE 106 MMOL/L (99-107); CHOL/HDL RATIO 3.6 (0.00-4.99); CHOLESTEROL 114 MG/DL (0-200); CREATININE 0.65 MG/DL (0.40-0.90); GLUCOSE 89 MG/DL (70-104); HDL CHOLESTEROL 32 MG/DL (35-60); LDL CHOLESTEROL 71 MG/DL (50-100); MAGNESIUM 1.8 MG/DL (1.5-2.4); POTASSIUM 3.5 MMOL/L (3.5-5.1); SODIUM 141 MMOL/L (135-145); TOTAL CARBON DIOXIDE 29.7 MMOL/L (24-32); TOTAL PROTEIN 6.7 G/DL (6.4-8.2); TRIGLYCERIDES 117 MG/DL (20-135); eGFR > 90 ML/MIN
--- NOTE | 2019-01-06 05:52 | NUR ---
[facility] documentation: I have reviewed and agree with all interventions, meds given, assessments performed and documented by Ele ALVARES.
[2019-01-06 06:00] VITALS: BP 107/40
--- NOTE | 2019-01-06 06:41 | NUR ---
Problems reprioritized. Patient report given, questions answered & plan of care reviewed with Delilah ALVARES.
--- NOTE | 2019-01-06 06:43 | NUR ---
Problems reprioritized. Patient report given, questions answered & plan of care reviewed with Marti ALVARES.
--- NOTE | 2019-01-06 06:44 | NUR ---
Patient in room PCU 3024. I have received report from Tami RN and had the opportunity to ask questions and assume patient care.
[2019-01-06] MEDS ORDERED: ROPINIRole 1mg tablet PO SCH (08:00)
[2019-01-06] MEDS ORDERED: K and/or MAG REPLACEMENT MC SCH (08:00)
[2019-01-06] MEDS ORDERED: enoxaparin 100mg/ml syringe SUBCUT SCH (08:00)
[2019-01-06] MEDS ORDERED: diazepam 5mg tablet PO SCH (08:00)
[2019-01-06] MEDS ORDERED: COU5T PO (08:44)
[2019-01-06] MEDS ORDERED: HYDR-4353 PO (08:44)
[2019-01-06] MEDS ORDERED: ENOX100D5 SUBCUT (08:44)
--- NOTE | 2019-01-06 09:14 | NUR ---
Patient has been educated on self injecting her Lovenox at home. Patient has shown an understanding via return demonstration. Patient states she self injects her SQ insulin. Will re-educate her upon reviewing her discharge packet.
[2019-01-06] MEDS ORDERED: FLU VACC QS2019-20 36MOS UP/PF 60 MCG/0.5 ML SYRINGE IMVAC ONE (10:00)
--- NOTE | 2019-01-06 10:54 | NUR ---
Verified with Dr. Bales that the CT of the lower extremity and pelvis are cancelled. He concurred that these are not needed. Patient is to be discharged.
--- NOTE | 2019-01-06 11:20 | NUR ---
Patient has been educated on: new medications, activity, diabetes survival skills, DVT, self injections, when to seek medical care. Patient has demonstrated and verbalized understanding of these topics. Patients medications Lovenox, and Warfarin have been called in to [facility] in [place], [place]. Patient was given her written prescription for [place]. Patients PIV has been removed and is intact. Tele has been removed. Patients belongings have been packed and sent with her. Patients is picking her up today. Patient has no complaints or questions at this time.
--- NOTE | 2019-01-06 12:50 | NUR ---
[facility] documentation: I have reviewed and agree with all interventions, assessments performed and documented by DIA Soriano. [facility] Medication Administration: For this medication-pass time frame, all medication were reviewed, dispensed, administered and documented per hospital policy by DIA Soriano.
[2019-01-06] MEDS ORDERED: insulin glargine (Lantus) pen - multi-dose SQ SCH (21:00)
[2019-01-08 10:11] LABS: PROTEIN S, FREE 78 % (57-157); PROTEIN S, TOTAL 75 % (60-150)
[2019-01-08 13:03] LABS: ANTITHROMBIN ACTIVITY 97 % (75-135); ANTITHROMBIN ANTIGEN 78 % (72-124)
== END 2019-01-06 11:26 | disposition home or self-care (01) | DRG 300 ==
LOC: ER 17:33 → ED HOLD 22:58 → PCU 3S 23:55
PROVIDERS: ADMIT Family Medicine; ATTEND Internal Medicine
DX: I82.411 Acute embolism and thrombosis of right femoral vein (principal); Z68.41 Body mass index [BMI] 40.0-44.9, adult; E11.42 Type 2 diabetes mellitus with diabetic polyneuropathy; E11.51 Type 2 diabetes mellitus with diabetic peripheral angiopathy without gangrene; I25.10 Atherosclerotic heart disease of native coronary artery without angina pectoris; D64.9 Anemia, unspecified; E66.01 Morbid (severe) obesity due to excess calories; M71.21 Synovial cyst of popliteal space [Baker], right knee; Z96.641 Presence of right artificial hip joint; G89.29 Other chronic pain; Z88.1 Allergy status to other antibiotic agents; Z88.6 Allergy status to analgesic agent; Z88.8 Allergy status to other drugs, medicaments and biological substances; Z23 Encounter for immunization; Z79.899 Other long term (current) drug therapy; I25.2 Old myocardial infarction; Z79.01 Long term (current) use of anticoagulants; Z79.02 Long term (current) use of antithrombotics/antiplatelets; Z82.49 Family history of ischemic heart disease and other diseases of the circulatory system; Z83.3 Family history of diabetes mellitus; Z90.710 Acquired absence of both cervix and uterus; Z98.84 Bariatric surgery status; Z90.49 Acquired absence of other specified parts of digestive tract
CPT/HCPCS: 36415; 80053; 80061; 81479; 82948; 83036; 83735; 83891; 83894; 83898; 85025; 85300; 85301; 85303; 85305; 85306; 85379; 85610; 86147; 87081; 93971; G0378; J1170; J1650; J1815; Q2037

== ENCOUNTER 2019-03-20 07:17 | Emergency (ER) | payer MEDICARE, MEDICAID ==
[~2019-03-20] VITALS: Ht 158.8 cm; Wt 175.0 kg
[~2019-03-20 07:17] MED LIST changes: -CIPR-260 PO; -CYCL-1 PO; +ENOX100D5 SUBCUT; -FERR-119 PO; -TRAZ-251 PO
[2019-03-20] MEDS ORDERED: LORazepam 1 MG tablet PO ONE (07:20)
[2019-03-20] MEDS ORDERED: ROPINIRole 1mg tablet PO ONE (07:20)
[2019-03-20 07:22] VITALS: BP 166/71
== END 2019-03-20 08:00 | disposition home or self-care (01) ==
LOC: ER 07:18
DX: G25.81 Restless legs syndrome (principal); F41.9 Anxiety disorder, unspecified; I25.2 Old myocardial infarction; F10.99 Alcohol use, unspecified with unspecified alcohol-induced disorder; E11.42 Type 2 diabetes mellitus with diabetic polyneuropathy; I25.10 Atherosclerotic heart disease of native coronary artery without angina pectoris; G89.29 Other chronic pain; Z76.0 Encounter for issue of repeat prescription; Z86.718 Personal history of other venous thrombosis and embolism; Z98.61 Coronary angioplasty status; Z90.710 Acquired absence of both cervix and uterus; Z98.84 Bariatric surgery status; Z98.890 Other specified postprocedural states; Z88.5 Allergy status to narcotic agent; Z88.8 Allergy status to other drugs, medicaments and biological substances; Z79.899 Other long term (current) drug therapy; Z79.4 Long term (current) use of insulin; Y90.9 Presence of alcohol in blood, level not specified
CPT/HCPCS: 99284

== ENCOUNTER 2020-04-20 12:31 | Emergency (ER) | payer MEDICARE, OTHER ==
[~2020-04-20] VITALS: Ht 157.5 cm; Wt 79.5 kg
[~2020-04-20 12:31] MED LIST changes: +ATOR20TA PO; -CLOP75TA15 PO; +CLOP75TA34 PO; -ENOX100D5 SUBCUT
[2020-04-20 12:39] VITALS: BP 126/90
--- NOTE | 2020-04-20 14:42 | NUR ---
vasc at bedside
[2020-04-20 15:10] LABS: EOSINOPHILS # (AUTO) 0.1 X10'3 (0-0.9); EOSINOPHILS % (AUTO) 1.7 % (0-6); HEMATOCRIT 33.3 % (35.0-45.0); HEMOGLOBIN 10.4 g/dl (12.0-16.0); LYMPHOCYTES # (AUTO) 1.3 X10'3 (1.1-4.8); LYMPHOCYTES % (AUTO) 26.3 % (21-51); MEAN CORPUSCULAR HEMOGLOBIN 24.1 PG (27.0-31.0); MEAN CORPUSCULAR HGB CONC 31.1 g/dL (33.0-36.5); MEAN CORPUSCULAR VOLUME 77.6 FL (78-98); MEAN PLATELET VOLUME 8.2 FL (7.4-10.4); MONOCYTES # (AUTO) 0.3 X10'3 (0-0.9); MONOCYTES % (AUTO) 5.5 % (2-12); NEUTROPHILS # (AUTO) 3.2 X10'3 (1.8-7.7); NEUTROPHILS % (AUTO) 65.5 % (42-75); PLATELET COUNT 253 X10'3 (140-440); RED BLOOD COUNT 4.29 X10'6 (4.20-5.60); RED CELL DISTRIBUTION WIDTH 18.5 % (11.5-14.5); WHITE BLOOD COUNT 4.8 X10'3 (4.5-11.0)
[2020-04-20 15:23] LABS: ALANINE AMINOTRANSFERASE 17 U/L (12-78); ALBUMIN 3.2 G/DL (3.4-5.0); ALBUMIN/GLOBULIN RATIO 0.7 (1.1-1.5); ALKALINE PHOSPHATASE 107 IU/L (46-116); ANION GAP 8 (8-16); ASPARTATE AMINO TRANSFERASE 25 U/L (10-37); BILIRUBIN,TOTAL 0.2 MG/DL (0.1-1.0); BLOOD UREA NITROGEN 14 MG/DL (7-18); CALCIUM 8.5 MG/DL (8.5-10.1); CHLORIDE 105 MMOL/L (99-107); GLUCOSE 180 MG/DL (70-104); POTASSIUM 4.2 MMOL/L (3.5-5.1); SODIUM 139 MMOL/L (135-145); TOTAL CARBON DIOXIDE 25.6 MMOL/L (24-32); eGFR 85 ML/MIN
[2020-04-20 15:25] LABS: D-DIMER 0.54 MG/L FEU (0-0.50); PARTIAL THROMBOPLASTIN TIME 40 SECONDS (22-32)
[2020-04-20] MEDS ORDERED: CEPH500C5 PO (16:03)
== END 2020-04-20 16:23 | disposition home or self-care (01) ==
LOC: ER 12:31
DX: L03.116 Cellulitis of left lower limb (principal); E11.42 Type 2 diabetes mellitus with diabetic polyneuropathy; I25.10 Atherosclerotic heart disease of native coronary artery without angina pectoris; I25.2 Old myocardial infarction; G89.29 Other chronic pain; Z86.718 Personal history of other venous thrombosis and embolism; Z90.710 Acquired absence of both cervix and uterus; Z98.890 Other specified postprocedural states; Z72.89 Other problems related to lifestyle; Z88.5 Allergy status to narcotic agent; Z88.8 Allergy status to other drugs, medicaments and biological substances; Z88.1 Allergy status to other antibiotic agents; Z79.899 Other long term (current) drug therapy
CPT/HCPCS: 36415; 80053; 85025; 85379; 85610; 85730; 93971; 99284

== ENCOUNTER 2021-07-11 11:53 | Emergency (ER) | payer MEDICARE, OTHER ==
[~2021-07-11] VITALS: Ht 160 cm; Wt 81.8 kg
[2021-07-11 12:19] LABS: BASOPHILS % (AUTO) 0.6 % (0-1); EOSINOPHILS # (AUTO) 0.1 X10'3 (0-0.9); EOSINOPHILS % (AUTO) 2.7 % (0-6); HEMATOCRIT 33.4 % (35.0-45.0); HEMOGLOBIN 10.5 g/dl (12.0-16.0); LYMPHOCYTES # (AUTO) 1.6 X10'3 (1.1-4.8); LYMPHOCYTES % (AUTO) 46.1 % (21-51); MEAN CORPUSCULAR HEMOGLOBIN 24.1 PG (27.0-31.0); MEAN CORPUSCULAR HGB CONC 31.3 g/dL (33.0-36.5); MEAN CORPUSCULAR VOLUME 77.1 FL (78-98); MEAN PLATELET VOLUME 8.6 FL (7.4-10.4); MONOCYTES # (AUTO) 0.3 X10'3 (0-0.9); MONOCYTES % (AUTO) 8.6 % (2-12); NEUTROPHILS # (AUTO) 1.5 X10'3 (1.8-7.7); PLATELET COUNT 220 X10'3 (140-440); RED BLOOD COUNT 4.33 X10'6 (4.20-5.60); WHITE BLOOD COUNT 3.5 X10'3 (4.5-11.0)
[2021-07-11] MEDS ORDERED: normal saline 1000ML IV soln IVB ONE ×2 (12:40)
[2021-07-11 12:47] LABS: ANISOCYTOSIS 2+; ELLIPTOCYTES FEW; MICROCYTOSIS 1+; PLATELET ESTIMATE NORMAL; SCHISTOCYTES FEW
[2021-07-11 12:52] LABS: ALANINE AMINOTRANSFERASE 21 U/L (12-78); ALBUMIN 2.8 G/DL (3.4-5.0); ALBUMIN/GLOBULIN RATIO 0.6 (1.1-1.5); ALKALINE PHOSPHATASE 94 IU/L (46-116); BILIRUBIN,TOTAL 0.3 MG/DL (0.1-1.0); BLOOD UREA NITROGEN 13 MG/DL (7-18); CALCIUM 7.6 MG/DL (8.5-10.1); CREATININE 0.65 MG/DL (0.40-0.90); GLUCOSE 114 MG/DL (70-104); MAGNESIUM 1.8 MG/DL (1.5-2.4); TOTAL CARBON DIOXIDE 24.6 MMOL/L (24-32); TOTAL PROTEIN 7.4 G/DL (6.4-8.2); eGFR > 90 ML/MIN
[2021-07-11 13:08] LABS: ANION GAP 8 (8-16); ASPARTATE AMINO TRANSFERASE 35 U/L (10-37); CHLORIDE 106 MMOL/L (99-107); SODIUM 139 MMOL/L (135-145)
[2021-07-11 13:27] LABS: POTASSIUM 4.7 MMOL/L (3.5-5.1)
[2021-07-11] MEDS ORDERED: dexamethasone sod phosphate 10mg/ml inj IV STA (13:54)
[2021-07-11] MEDS ORDERED: ondansetron/PF 4mg/2ml inj IV ONE (13:55)
[2021-07-11 13:59] VITALS: BP 124/57
[2021-07-11 14:03] LABS: D-DIMER 0.78 MG/L FEU (0-0.50)
[2021-07-11] MEDS ORDERED: dexamethasone sod phosphate 10mg/ml inj PO ONE (14:10)
== END 2021-07-11 15:16 | disposition home or self-care (01) ==
LOC: ER 11:53
DX: J40 Bronchitis, not specified as acute or chronic (principal); Z20.822 Contact with and (suspected) exposure to COVID-19; R07.89 Other chest pain; R09.89 Other specified symptoms and signs involving the circulatory and respiratory systems; R50.9 Fever, unspecified; R11.0 Nausea; E11.42 Type 2 diabetes mellitus with diabetic polyneuropathy; I25.10 Atherosclerotic heart disease of native coronary artery without angina pectoris; I25.2 Old myocardial infarction; G89.29 Other chronic pain; Z86.718 Personal history of other venous thrombosis and embolism; Z90.710 Acquired absence of both cervix and uterus; Z98.890 Other specified postprocedural states; Z72.89 Other problems related to lifestyle; Z88.5 Allergy status to narcotic agent; Z88.8 Allergy status to other drugs, medicaments and biological substances; Z79.899 Other long term (current) drug therapy
CPT/HCPCS: 36415; 71045; 80053; 83735; 83880; 84145; 84484; 85008; 85025; 85379; 85610; 87635; 93005; 96361; 96374; 99285; C9803; J1100; J2405; J7030

== ENCOUNTER 2021-09-13 09:37 | Day surgery (SDC) | payer OTHER ==
[2021-09-11 15:19] LABS: BASOPHILS % (AUTO) 0.8 % (0-1); EOSINOPHILS # (AUTO) 0.1 X10'3 (0-0.9); EOSINOPHILS % (AUTO) 2.5 % (0-6); HEMATOCRIT 32.6 % (35.0-45.0); HEMOGLOBIN 10.3 g/dl (12.0-16.0); LYMPHOCYTES # (AUTO) 1.5 X10'3 (1.1-4.8); LYMPHOCYTES % (AUTO) 28.8 % (21-51); MEAN CORPUSCULAR HEMOGLOBIN 24.9 PG (27.0-31.0); MEAN CORPUSCULAR HGB CONC 31.7 g/dL (33.0-36.5); MEAN CORPUSCULAR VOLUME 78.7 FL (78-98); MEAN PLATELET VOLUME 8.5 FL (7.4-10.4); MONOCYTES # (AUTO) 0.3 X10'3 (0-0.9); NEUTROPHILS # (AUTO) 3.4 X10'3 (1.8-7.7); NEUTROPHILS % (AUTO) 62.9 % (42-75); PLATELET COUNT 249 X10'3 (140-440); RED BLOOD COUNT 4.15 X10'6 (4.20-5.60); RED CELL DISTRIBUTION WIDTH 19.6 % (11.5-14.5); WHITE BLOOD COUNT 5.4 X10'3 (4.5-11.0)
[2021-09-11 15:29] LABS: APTT 22 SECONDS (22-32)
[2021-09-11 15:36] LABS: ALANINE AMINOTRANSFERASE 17 U/L (12-78); ALBUMIN 3.3 G/DL (3.4-5.0); ALBUMIN/GLOBULIN RATIO 0.8 (1.1-1.5); ALKALINE PHOSPHATASE 111 IU/L (46-116); ANION GAP 11 (8-16); ASPARTATE AMINO TRANSFERASE 18 U/L (10-37); BILIRUBIN,TOTAL 0.3 MG/DL (0.1-1.0); BLOOD UREA NITROGEN 12 MG/DL (7-18); BUN/CREATININE RATIO 17.9 (6.6-38.0); CALCIUM 8.4 MG/DL (8.5-10.1); CHLORIDE 106 MMOL/L (99-107); CREATININE 0.67 MG/DL (0.40-0.90); GLUCOSE 136 MG/DL (70-104); POTASSIUM 3.8 MMOL/L (3.5-5.1); SODIUM 144 MMOL/L (135-145); TOTAL CARBON DIOXIDE 27.3 MMOL/L (24-32); TOTAL PROTEIN 7.7 G/DL (6.4-8.2); eGFR 89 ML/MIN
[2021-09-11 15:56] LABS: ANISOCYTOSIS 2+; MICROCYTOSIS 1+; PLATELET ESTIMATE NORMAL
[2021-09-11 15:57] LABS: LARGE PLATELETS FEW
[2021-09-13] VITALS (15 sets, daily range): BP systolic 96–143; BP diastolic 48–68
[~2021-09-13] VITALS: Ht 160 cm; Wt 82.0 kg
[2021-09-13] MEDS ORDERED: diphenhydrAMINE 25mg capsule PO PRN (10:00)
[2021-09-13] MEDS ORDERED: LORazepam 0.5 MG tablet PO PRN (10:00)
[2021-09-13] MEDS ORDERED: normal saline 1,000 ML IV SCH (10:00)
[2021-09-13] MEDS ORDERED: nitroGLYCERIN 0.4mg SUBLingual tab SL PRN ×2 (10:00→15:30)
[2021-09-13] MEDS ORDERED: DEXTROSE 15 GM of carb/4 tabs (each vial/BOTTLE has 4 tablets) PO PRN ×2 (10:05)
[2021-09-13] MEDS ORDERED: dextrose 50%-water 50ml dispensing syringe IV PRN ×2 (10:05)
[2021-09-13] MEDS ORDERED: insulin Lispro (HumaLOG) vial - multi-dose SQ SCH (10:05)
[2021-09-13] MEDS ORDERED: glucagon, human recombinant 1mg kit SUBCUT PRN (10:05)
[2021-09-13] MEDS ORDERED: MESSAGE TO PHARMACY PO ONE (10:05)
[2021-09-13] MEDS ORDERED: HYDR-3972 PO (10:29)
[2021-09-13] MEDS ORDERED: WARF4TAB69 PO (10:29)
[2021-09-13] MEDS ORDERED: ATOR-2 PO (10:29)
[2021-09-13] MEDS ORDERED: LISI5TAB22 PO (10:29)
[2021-09-13] MEDS ORDERED: GLIM2TAB6 PO (10:29)
[2021-09-13] MEDS ORDERED: LIDOcaine 1%/PF 5ML 10 MG/ML VIAL ONE ×2 (12:48)
[2021-09-13] MEDS ORDERED: midazolam 1 mg/ML 2ml injection ONE (12:48)
[2021-09-13] MEDS ORDERED: fentaNYL/PF 50MCG/1 ML 2ML syringe ONE (12:48)
[2021-09-13] MEDS ORDERED: iohexol 350MG/ML 100ml bottle IV ONE (12:48)
[2021-09-13] MEDS ORDERED: HYDROmorphone 1 mg/ml syringe ONE (14:04)
[2021-09-13] MEDS ORDERED: LORazepam 2 mg/ml vial ONE ×2 (14:07→14:08)
[2021-09-13] MEDS ORDERED: HYDROcodone/acetaminophen 10/325mg tab PO PRN (15:30)
[2021-09-13] MEDS ORDERED: ondansetron/PF 4mg/2ml inj IV PRN (15:30)
[2021-09-13] MEDS ORDERED: OXAZEpam 15mg capsule PO PRN (15:30)
[2021-09-13] MEDS ORDERED: HYDROcodone/acetaminophen 5mg/325mg tablet PO PRN (15:30)
[2021-09-13] MEDS ORDERED: proCHLORperazine 10 MG/2 ml inj IV PRN (15:30)
--- NOTE | 2021-09-13 18:15 | NUR ---
Bedside report to Apolonia ALVARES. Viewed left groin site, bilateral lower extremity wounds, palpated left pedal pulse. Pt awakens easily, eating sandwich. Pt to return at 1900 for DC instructions.
--- NOTE | 2021-09-13 18:16 | NUR ---
Assumed care of patient from Selena Salazar RN. Bedside report given. Assessed puncture site to left groin and assessed pedal pulse. Site stable with no signs of hematoma. Patient's will return at 1900 for discharge instructions.
[2021-09-13] MEDS ORDERED: insulin glargine (Lantus) pen - multi-dose SQ SCH (21:00)
== END 2021-09-13 20:05 | disposition home or self-care (01) ==
LOC: SSTAY O 09:37
PROVIDERS: ATTEND Internal Medicine Cardiovascular Disease
DX: R94.39 Abnormal result of other cardiovascular function study (principal); I25.10 Atherosclerotic heart disease of native coronary artery without angina pectoris; F41.0 Panic disorder [episodic paroxysmal anxiety]; M47.9 Spondylosis, unspecified; E11.40 Type 2 diabetes mellitus with diabetic neuropathy, unspecified; I10 Essential (primary) hypertension; E78.5 Hyperlipidemia, unspecified; J44.9 Chronic obstructive pulmonary disease, unspecified; M54.30 Sciatica, unspecified side; G89.4 Chronic pain syndrome; Z87.891 Personal history of nicotine dependence; Z79.01 Long term (current) use of anticoagulants; Z98.890 Other specified postprocedural states; Z88.5 Allergy status to narcotic agent; Z88.8 Allergy status to other drugs, medicaments and biological substances; Z90.710 Acquired absence of both cervix and uterus; Z86.718 Personal history of other venous thrombosis and embolism; Z98.84 Bariatric surgery status; Z79.899 Other long term (current) drug therapy; Z86.711 Personal history of pulmonary embolism
CPT/HCPCS: 36415; 71046; 80053; 85025; 85610; 85730; 93458; 99152; 99153; C1760; C1769; C1894; J1170; J1644; J2060; J2250; J3010; J3490; J7030; Q0163; Q9967; 85008; A4620; A6258; J1815

== ENCOUNTER 2022-09-11 22:06 | Emergency (ER) | payer BC ==
[~2022-09-11] VITALS: Ht 160 cm; Wt 81.8 kg
[~2022-09-11 22:06] MED LIST changes: +ATOR-2 PO; -ATOR20TA PO; -CLOP75TA34 PO; -FURO-150 PO; +GLIM2TAB6 PO; +HYDR-3972 PO; -HYDR-4353 PO; -INSU100C4 SQ; +LISI5TAB22 PO; +WARF4TAB69 PO
[2022-09-11] MEDS ORDERED: morphine 4 MG/ML inj SYRINge IM ONE ×2 (22:45→23:20)
[2022-09-11] MEDS ORDERED: ondansetron 4mg rapidly disintigrating tab PO ONE ×2 (22:45→23:20)
--- NOTE | 2022-09-11 22:52 | NUR ---
po med ,im med given
[2022-09-11] MEDS ORDERED: BUPIVAcaine 0.5% W/EPI /PF 30ml vial IJ ONE (23:20)
[2022-09-11] MEDS ORDERED: HYDR-3965 PO (23:35)
[2022-09-11] MEDS ORDERED: ONDA4TAB12 PO (23:35)
[2022-09-12] MEDS ORDERED: oxyCODONE/APAP 5-325mg tablet PO ONE (00:05)
[2022-09-12 00:51] VITALS: BP 125/80
== END 2022-09-12 00:52 | disposition home or self-care (01) ==
LOC: ER 22:06
DX: S52.181A Other fracture of upper end of right radius, initial encounter for closed fracture (principal); E11.9 Type 2 diabetes mellitus without complications; I11.9 Hypertensive heart disease without heart failure; Z88.8 Allergy status to other drugs, medicaments and biological substances; Z88.1 Allergy status to other antibiotic agents; W18.39XA Other fall on same level, initial encounter; Y93.89 Activity, other specified; Y92.89 Other specified places as the place of occurrence of the external cause; Y99.8 Other external cause status
CPT/HCPCS: 25605; 70450; 72125; 73060; 73080; 73110; 96372; 99285; J2270; 96361; 96374; 96375; 99284; A4565; A6449

== ENCOUNTER 2024-07-01 09:17 | Outpatient (CLI) | payer MEDICARE, MEDICAID ==
[~2024-07-01 09:17] MED LIST changes: +ONDA-243 PO
== END 2024-07-01 23:59 | disposition home or self-care (01) ==
LOC: RAD 09:17
PROVIDERS: ATTEND Surgery
DX: R16.2 Hepatomegaly with splenomegaly, not elsewhere classified (principal); K43.2 Incisional hernia without obstruction or gangrene; D49.2 Neoplasm of unspecified behavior of bone, soft tissue, and skin; J18.1 Lobar pneumonia, unspecified organism; Z90.49 Acquired absence of other specified parts of digestive tract; M96.1 Postlaminectomy syndrome, not elsewhere classified
CPT/HCPCS: 74150